=== PATIENT | female | born 2000 | race Caucasian/White ===

== ENCOUNTER 2022-02-04 13:00 | Outpatient (CLI) | payer MEDICAID, OTHER ==
[2022-02-05 13:10] LABS: BILIRUBIN,URINE NEGATIVE (NEGATIVE); GLUCOSE, URINE (UA) NEGATIVE (NEGATIVE); KETONES,URINE (UA) NEGATIVE (NEGATIVE); LEUKOCYTE ESTERASE, URINE NEGATIVE (NEGATIVE); NITRITE,URINE NEGATIVE (NEGATIVE); OCCULT BLOOD,URINE NEGATIVE (NEGATIVE); PROTEIN,URINE NEGATIVE (NEGATIVE); UROBILINOGEN,URINE 0.2 (NORMAL) E.U./dL (NORMAL)
[2022-02-05 13:15] LABS: CLARITY,URINE TURBID (CLEAR)
[2022-02-05 13:51] LABS: BACTERIA,URINE Rare /HPF (None Seen); RBC,URINE None Seen /HPF (0-5); SQUAMOUS EPITHELIAL CELL,UR FEW Squamous (<= Few); WBC,URINE 0-3 /HPF (0-5)
== END 2022-02-04 23:59 | disposition home or self-care (01) ==
LOC: LAB.WC 13:00
PROVIDERS: ATTEND Obstetrics & Gynecology
DX: Z32.01 Encounter for pregnancy test, result positive (principal)
CPT/HCPCS: 81001; 87086

== ENCOUNTER 2022-02-08 14:00 | Outpatient (CLI) | payer MEDICAID ==
[2022-02-08 14:17] LABS: BASOPHILS % (AUTO) 0.3 %; EOSINOPHILS # (AUTO) 0.1 10^3/uL (0.0-0.7); EOSINOPHILS % (AUTO) 1.5 %; HCT - HEMATOCRIT 38.3 % (37.0-47.0); HGB - HEMOGLOBIN 13.1 g/dL (12.0-16.0); LYMPHOCYTES # (AUTO) 1.2 10^3/uL (1.5-3.5); LYMPHOCYTES % (AUTO) 18.6 %; MEAN CORPUSCULAR HEMOGLOBIN 28.8 pg (27.0-31.0); MEAN CORPUSCULAR HGB CONC 34.2 g/dL (32.0-36.0); MEAN CORPUSCULAR VOLUME 84.2 fL (81.0-99.0); MEAN PLATELET VOLUME 9.9 fL (7.9-10.8); MONOCYTES # (AUTO) 0.6 10^3/uL (0.0-1.0); MONOCYTES % (AUTO) 9.5 %; NEUTROPHILS # (AUTO) 4.3 10^3/uL (1.5-6.6); NEUTROPHILS % (AUTO) 69.8 %; PLT - PLATELET COUNT 263 10^3/uL (130-450); RED BLOOD COUNT 4.55 10^6/uL (4.20-5.40); RED CELL DISTRIBUTION WIDTH 13.3 % (12.0-15.0); WHITE BLOOD COUNT 6.2 x10^3/uL (4.8-10.8)
[2022-02-09 05:10] LABS: HBsAG SCREEN Negative (Negative); HCV AB <0.1 s/co ratio (0.0-0.9); HIV SCREEN 4TH GENERATION Non Reactive (Non Reactive)
[2022-02-09 06:09] LABS: RPR Non Reactive (Non Reactive)
[2022-02-09 08:09] LABS: VARICELLA-ZOSTER AB IGG <135 index (Immune >165)
== END 2022-02-08 14:01 | disposition home or self-care (01) ==
LOC: LAB 14:00
PROVIDERS: ATTEND Obstetrics & Gynecology
DX: Z36.89 Encounter for other specified antenatal screening (principal)
CPT/HCPCS: 36415; 85025; 86592; 86762; 86787; 86803; 86850; 86900; 86901; 87340; 87389

== ENCOUNTER 2022-02-11 11:30 | Outpatient (CLI) | payer MEDICAID | END 2022-02-11 11:31 | disposition home or self-care (01) | LOC: LAB 11:30 | PROVIDERS: ATTEND Obstetrics & Gynecology | DX: O02.1 Missed abortion (principal) | CPT/HCPCS: 36415; 84702 ==

== ENCOUNTER 2022-02-25 13:11 | Outpatient (CLI) | payer MEDICAID ==
[2022-02-25 13:38] LABS: BASOPHILS % (AUTO) 0.4 %; EOSINOPHILS # (AUTO) 0.1 10^3/uL (0.0-0.7); EOSINOPHILS % (AUTO) 0.6 %; HCT - HEMATOCRIT 38.6 % (37.0-47.0); HGB - HEMOGLOBIN 13.4 g/dL (12.0-16.0); LYMPHOCYTES # (AUTO) 1.8 10^3/uL (1.5-3.5); MEAN CORPUSCULAR HEMOGLOBIN 29.8 pg (27.0-31.0); MEAN CORPUSCULAR HGB CONC 34.7 g/dL (32.0-36.0); MEAN CORPUSCULAR VOLUME 85.8 fL (81.0-99.0); MEAN PLATELET VOLUME 10.2 fL (7.9-10.8); MONOCYTES # (AUTO) 0.6 10^3/uL (0.0-1.0); MONOCYTES % (AUTO) 7.6 %; NEUTROPHILS # (AUTO) 5.6 10^3/uL (1.5-6.6); NEUTROPHILS % (AUTO) 69.2 %; PLT - PLATELET COUNT 255 10^3/uL (130-450); RED CELL DISTRIBUTION WIDTH 13.2 % (12.0-15.0)
== END 2022-02-25 13:12 | disposition home or self-care (01) ==
LOC: LAB 13:11
PROVIDERS: ATTEND Obstetrics & Gynecology
DX: Z01.812 Encounter for preprocedural laboratory examination (principal); O02.1 Missed abortion
CPT/HCPCS: 36415; 85025; 86850; 86900; 86901

== ENCOUNTER 2022-02-26 08:48 | Day surgery (SDC) | payer MEDICAID ==
[~2022-02-26 08:48] MED LIST: LIDOCAINE MPF 2%-EPI 1:200000 20 ML VIAL ONE
[2022-02-26] MEDS ORDERED: LACTATED RINGERS 1,000 ML IV ONE ×2 (08:52→11:38)
[2022-02-26] MEDS ORDERED: DOXYCYCLINE 100 MG TABLET PO ONE (09:54)
[2022-02-26] MEDS ORDERED: DEXAMETHASONE 4 MG/ML VIAL ONE (10:24)
[2022-02-26] MEDS ORDERED: PROPOFOL 200 MG/20 ML VIAL IVP ONE ×3 (10:24→11:22)
[2022-02-26] MEDS ORDERED: ONDANSETRON 4 MG/2 ML VIAL ONE (10:24)
[2022-02-26] MEDS ORDERED: MIDAZOLAM 2 MG/2 ML VIAL ONE (10:26)
[2022-02-26] MEDS ORDERED: fentaNYL 100 MCG/2 ML VIAL ONE ×2 (10:26→12:03)
[2022-02-26] MEDS ORDERED: LIDOCAINE-MPF 2% 5 ML VIAL ONE (10:28)
[2022-02-26] MEDS ORDERED: NALOXONE 0.4 MG/ML VIAL IVP PRN (10:29)
[2022-02-26] MEDS ORDERED: MORPHINE 2 MG/ML CARPUJECT IVP PRN (10:29)
[2022-02-26] MEDS ORDERED: fentaNYL 100 MCG/2 ML VIAL IVP PRN (10:29)
[2022-02-26] MEDS ORDERED: ONDANSETRON 4 MG/2 ML VIAL IVP PRN (10:29)
[2022-02-26] MEDS ORDERED: HYDROmorphone 0.5 MG/0.5 ML SYRINGE IVP PRN (10:29)
[2022-02-26] MEDS ORDERED: ATROPINE ABBOJECT 1 MG/10 ML SYRINGE IVP PRN (10:29)
[2022-02-26] MEDS ORDERED: KETAMINE 500 MG/10 ML VIAL ONE (10:37)
[2022-02-26] MEDS ORDERED: PROPOFOL 500 MG/50 ML 500 MG/50 ML VIAL ONE (10:42)
[2022-02-26] MEDS ORDERED: DOXYCYCLINE INJ 100 MG in SODIUM CHLORIDE 0.9% MINIBAG 100 ML IV STA (10:50)
[2022-02-26] MEDS ORDERED: LACTATED RINGERS 1,000 ML IV SCH (11:00)
--- NOTE | 2022-02-26 11:06 | ANESTHESIA ---
Pre-Anesthesia VS, & Labs - Diagnosis missed - Procedure dilation & curettage, induced Vital Signs: Temp Pulse Resp BP Pulse Ox O2 Flow Rate 36.2 C L 58 L 16 145/82 H 97 0 02/26/22 09:10 02/26/22 09:10 02/26/22 09:10 02/26/22 09:10 02/26/22 09:10 02/26/22 09:10 Height: 5 ft 5 in Weight (kg): 108 kg Body Mass Index: 39.6 BMI Classification: Obese - NPO >8 hours - Is Patient ?: Yes Home Medications and Allergies Home Medications: Ambulatory Orders buPROPion [Wellbutrin Xl] 150 mg PO DAILY 02/19/22 Active Medications Atropine Sulfate (Atropine Abboject 1 Mg/10 Ml Syringe) 0.5 mg IVP Q5M PRN PRN Reason: Bradycardia Stop: 02/27/22 10:29 Fentanyl (Fentanyl 100 Mcg/2 Ml Vial) 25 - 50 mcg IVP Q5M PRN PRN Reason: BREAKTHROUGH PAIN (2nd Choice) Stop: 02/27/22 10:29 Hydromorphone HCl (Hydromorphone 0.5 Mg/0.5 Ml Syringe) 0.2 - 0.6 mg IVP Q5M PRN PRN Reason: PAIN (First Choice) Stop: 02/27/22 10:29 Lactated Ringer's (Lr) 1,000 mls @ 100 mls/hr IV .Q10H ADE Stop: 02/26/22 20:59 Doxycycline Hyclate 200 mg/ (Sodium Chloride) 100 mls @ 100 mls/hr IV ONCE STA Stop: 02/26/22 11:49 Morphine Sulfate (Morphine 2 Mg/Ml Carpuject) 2 - 4 mg IVP Q5M PRN PRN Reason: PAIN (3rd Choice) Stop: 02/27/22 10:29 Naloxone HCl (Naloxone 0.4 Mg/Ml Vial) 0.1 mg IVP Q2M PRN PRN Reason: RESP RATE <8 Stop: 02/27/22 10:29 Ondansetron HCl (Ondansetron 4 Mg/2 Ml Vial) 4 mg IVP ONCE PRN PRN Reason: N/V (First Choice) Stop: 02/27/22 10:29 buPROPion [Wellbutrin Xl] 150 mg PO DAILY 02/19/22 Allergies/Adverse Reactions: Allergies Allergy/AdvReac Type Severity Reaction Status Date / Time nickel Allergy Intermediate Rash Verified 02/25/22 12:15 Anes History & Medical History - Anesthetic History Anesthesia Complications: reports: No previous complications Family history of Anesthesia Complications: Denies Family history of Malignant Hyperthermia: Denies - Medical History Cardiovascular: reports: None Pulmonary: reports: None Gastrointestinal: reports: None Urinary: reports: None Neuro: reports: None Musculoskeletal: reports: None Endocrine/Autoimmune: reports: None Skin: reports: None Smoking Status: Never smoker Psychosocial: reports: No issues indicated History of Cancer?: No - Surgical History Eyes Ears Nose Throat (EENT): reports: Tonsil/Adenoidectomy Orthopedic: reports: Arthroscopic surgery Exam General: Alert, Oriented x3, Cooperative, No acute distress Mouth Openin Fingerbreadth Neck Mobility: Normal Mallampati classification: II Thyromental Distance: 4-6 cm Cardiovascular: Normal S2 Mental/Cognitive Status: Alert/Oriented X3, Normal for patient Cognitive Status: Within normal limits Plan Anesthesia Type: General, Total IV Consent for Procedure(s) Verified and Reviewed: Yes Code Status: Attempt Resuscitation ASA classification: 2-Mild systemic disease Is this case an emergency?: No
[2022-02-26] MEDS ORDERED: LIDOCAINE MPF 2%-EPI 1:200000 20 ML VIAL SUBQ ONE ×2 (11:07)
[2022-02-26] MEDS ORDERED: HYDROcod/ACETAM 10 MG/325 MG TABLET PO PRN (11:24)
--- NOTE | 2022-02-26 11:30 | OPERATIVE REPORT ---
Operative Report - General Procedure Date: 02/26/22 Planned Procedure: Suction dilation and curettage Pre-Op Diagnosis: Missed Procedure Performed: Suction dilation and curettage Post Op Diagnosis: Complete , S/P suction D&C - Procedure Note Primary Surgeon: Suhas Fowler MD Anesthesia Provider: Radha Crouch CRNA Anesthesia Technique: General ET tube Pathology: Products of conception Estimated Blood Loss (mL): 50 Urine Output (mL): 0 (Straight cath prior to procedure) Complications: None - Other Other Information/Narrative: Patient is approximately 10 weeks 5 days by previous ultrasound, but elected to exactly manage this for several weeks. She began cramping and having some spotting/discharge prior to the procedure. She presented desiring not to c omplete the procedure expectantly. She was counseled the risk, benefits, alternatives of suction D&C versus medical and expectant management. She was counseled in clinic, and again in the PACU. She agreed to proceed with surgical evacuation. Suction D&C Prior to the procedure, patient received 200 mg of oral doxycycline, but vomited prior to surgery. Due to unknown amount of antibiotic received, she then received 100 mg of IV doxycycline. General anesthesia was obtained without difficulty. Patient was placed in dorsal high lithotomy position with great- white stirrups. The pelvis was prepped and the patient was draped in the usual fashion. Careful pelvic examination is performed to locate the position of the uterus and noted mild dilation of the cervical os. A bivalve speculum was placed in the vagina and the cervix was grasped with a single-tooth tenaculum and gently drawn towards the vaginal outlet. A paracervical block was performed. Using gentle pressure and under ultrasound guidance, the cervix was dilated to 9 mm. A 9 mm rigid suction catheter was used for suction. Under ultrasound guidance, the catheter was placed without suction into the uterine cavity. Blood and products of conception were collected in the section catheter container. After adequate removal of products, a sharp curette was used to remove additional products of conception adherent to uterine valadez. The products were collected in a sterile dish and examined. Chronic villi were seen as well as abundant products of conception and decidual tissue.. After removing products of conception and feeling circumferential uterine cri, adequate hemostasis was noted from coming from the uterus and the tenaculum was removed. Tenaculum sites were hemostatic. Upon examination the patient was hemostatic and all instruments were removed. Patient was returned to dorsal supine position and awoke from anesthesia. She was taken to the PACU in good condition.
[2022-02-26 13:14] VITALS: BP 158/75
--- NOTE | 2022-02-26 13:36 | ANESTHESIA POST OP EVALUATION ---
Anesthesia Post Eval - Post Anesthesia Eval Vitals: Last Vital Signs Temp 36.2 C L 02/26/22 13:05 Pulse 61 02/26/22 13:05 Resp 16 02/26/22 13:05 BP 158/75 H 02/26/22 13:05 Pulse Ox 98 02/26/22 13:05 O2 Flow Rate 0 02/26/22 09:10 CV Function Including HR & BP: Stable Pain Control: Satisfactory Nausea & Vomiting: Negative Mental Status: Baseline Respiratory Status: Airway Patent Hydration Status: Satisfactory Anesthesia Complications: None
== END 2022-02-26 08:49 | disposition home or self-care (01) ==
LOC: SDS 08:48
PROVIDERS: ATTEND Obstetrics & Gynecology
PROC: 10D17Z9 Manual Extraction of Products of Conception, Retained, Via Natural or Artificial Opening (ICD-10-PCS; principal; 2022-02-26 09:30)
DX: O02.1 Missed abortion (principal); Z3A.10 10 weeks gestation of pregnancy
CPT/HCPCS: 59820; A9270; J7120

== ENCOUNTER 2022-05-23 08:00 | Outpatient (CLI) | payer OTHER, MEDICAID ==
[2022-05-23 20:08] LABS: BACTERIAL VAGINOSIS DNA NEGATIVE (NEGATIVE); CANDIDA GLABRATA DNA NEGATIVE (NEGATIVE); CANDIDA GROUP DNA NEGATIVE (NEGATIVE); CANDIDA KRUSEI DNA NEGATIVE (NEGATIVE); TRICHOMONAS VAGINALIS DNA NEGATIVE (NEGATIVE)
== END 2022-05-23 23:59 | disposition home or self-care (01) ==
LOC: LAB.WC 08:00
PROVIDERS: ATTEND Obstetrics & Gynecology
DX: N89.8 Other specified noninflammatory disorders of vagina (principal)
CPT/HCPCS: 81514

== ENCOUNTER 2022-12-23 08:00 | Outpatient (CLI) | payer MEDICAID ==
[2022-12-23 17:11] LABS: BILIRUBIN,URINE NEGATIVE (NEGATIVE); GLUCOSE, URINE (UA) NEGATIVE (NEGATIVE); KETONES,URINE (UA) NEGATIVE (NEGATIVE); LEUKOCYTE ESTERASE, URINE NEGATIVE (NEGATIVE); NITRITE,URINE NEGATIVE (NEGATIVE); OCCULT BLOOD,URINE NEGATIVE (NEGATIVE); PROTEIN,URINE NEGATIVE (NEGATIVE); UROBILINOGEN,URINE 0.2 (NORMAL) E.U./dL (NORMAL)
[2022-12-23 17:39] LABS: BACTERIA,URINE None Seen /HPF (None Seen); CLARITY,URINE CLEAR (CLEAR); RBC,URINE None Seen /HPF (0-5); SQUAMOUS EPITHELIAL CELL,UR FEW Squamous (<= Few); WBC,URINE 0-3 /HPF (0-5)
== END 2022-12-23 23:59 | disposition home or self-care (01) ==
LOC: LAB.WC 08:00
PROVIDERS: ATTEND Nurse Practitioner
DX: Z34.90 Encounter for supervision of normal pregnancy, unspecified, unspecified trimester (principal)
CPT/HCPCS: 81001; 87086

== ENCOUNTER 2022-12-28 07:05 | Outpatient (CLI) | payer MEDICAID ==
--- NOTE | 2022-12-28 16:44 | Ultrasound Report ---
PROCEDURE: OB First Trimester w/TV INDICATIONS: POSITIVE TEST OUTSIDE/PRIOR DATING DATA: Last menstrual period (LMP): 11/01/2022. LMP-based estimated date of delivery (ASHLEY): 08/08/2023. First dating scan (date and location): 12/28/2022. Estimated date of delivery (ASHLEY) from first dating scan: 08/06/2023. TECHNIQUE: Real-time scanning was performed of the fetus and maternal pelvic organs, with image documentation. Endovaginal scanning was also performed to better visualize the fetus and maternal ovaries. COMPARISON: None. FINDINGS: Intrauterine gestational sac present. Embryo: Mean gestational sac diameter 3.1 cm: 8 weeks 2 days. [place]-rump length 1.9 cm: 8 weeks 3 da ys. Heart rate: 160 bpm. Other: No perigestational fluid collection. Measurement variability in dating: +/- 4 weeks by LMP, +/- 7 days by mean sac diameter (use before 6 weeks gestation if crown-rump length not able to be measured), +/- 5 days by crown-rump length (6-12 weeks gestation). Maternal organs: Ovaries demonstrate a right corpus luteal cyst measuring 1.7 cm. IMPRESSION: Single living intrauterine with a estimated gestational age of 8 weeks 3 days. Reviewed by: Jayden Stovall on 12/28/2022 4:43 PM PDT Approved by: Jayden Stovall on 12/28/2022 4:43 PM PDT Station ID: [id number]
== END 2022-12-28 07:06 | disposition home or self-care (01) ==
LOC: DI 07:05
PROVIDERS: ATTEND Nurse Practitioner
DX: Z34.91 Encounter for supervision of normal pregnancy, unspecified, first trimester (principal)

== ENCOUNTER 2023-01-16 15:41 | Outpatient (CLI) | payer MEDICAID ==
[2023-01-16 16:18] LABS: BASOPHILS % (AUTO) 0.2 %; EOSINOPHILS % (AUTO) 0.4 %; HCT - HEMATOCRIT 38.2 % (37.0-47.0); HGB - HEMOGLOBIN 12.8 g/dL (12.0-16.0); LYMPHOCYTES # (AUTO) 1.9 10^3/uL (1.5-3.5); LYMPHOCYTES % (AUTO) 23.6 %; MEAN CORPUSCULAR HEMOGLOBIN 28.3 pg (27.0-31.0); MEAN CORPUSCULAR HGB CONC 33.5 g/dL (32.0-36.0); MEAN CORPUSCULAR VOLUME 84.5 fL (81.0-99.0); MEAN PLATELET VOLUME 10.4 fL (7.9-10.8); MONOCYTES # (AUTO) 0.6 10^3/uL (0.0-1.0); MONOCYTES % (AUTO) 7.1 %; NEUTROPHILS # (AUTO) 5.6 10^3/uL (1.5-6.6); NEUTROPHILS % (AUTO) 68.5 %; PLT - PLATELET COUNT 287 10^3/uL (130-450); RED BLOOD COUNT 4.52 10^6/uL (4.20-5.40); RED CELL DISTRIBUTION WIDTH 14.6 % (12.0-15.0); WHITE BLOOD COUNT 8.2 x10^3/uL (4.8-10.8)
[2023-01-17 05:13] LABS: HBsAG SCREEN Negative (Negative); HCV AB Non Reactive (Non Reactive); HIV SCREEN 4TH GENERATION Non Reactive (Non Reactive)
[2023-01-17 06:10] LABS: RPR Non Reactive (Non Reactive)
[2023-01-17 09:09] LABS: VARICELLA-ZOSTER AB IGG <135 index (Immune >165)
[2023-01-17 17:09] LABS: ANTI-DNA (DS) AB QN 1 IU/mL (0-9); CENTROMERE B ANTIBODIES <0.2 AI (0.0-0.9); CHROMATIN ANTIBODIES <0.2 AI (0.0-0.9); JO-1 AB <0.2 AI (0.0-0.9); RIBOSOMAL P ANTIBODIES <0.2 AI (0.0-0.9); RNP ANTIBODIES <0.2 AI (0.0-0.9); SCLERODERMA-70 ANTIBODIES <0.2 AI (0.0-0.9); SJOGREN'S ANTI-SS-A <0.2 AI (0.0-0.9); SJOGREN'S ANTI-SS-B <0.2 AI (0.0-0.9); SMITH ANTIBODIES <0.2 AI (0.0-0.9); SMITH/RNP ANTIBODIES <0.2 AI (0.0-0.9)
== END 2023-01-16 15:42 | disposition home or self-care (01) ==
LOC: LAB 15:41
PROVIDERS: ATTEND Nurse Practitioner
DX: Z34.90 Encounter for supervision of normal pregnancy, unspecified, unspecified trimester (principal); Z83.2 Family history of diseases of the blood and blood-forming organs and certain disorders involving the immune mechanism
CPT/HCPCS: 36415; 83516; 84443; 85025; 86225; 86235; 86592; 86762; 86787; 86803; 86850; 86900; 86901; 87340; 87389

== ENCOUNTER 2023-01-20 08:00 | Outpatient (CLI) | payer MEDICAID ==
[2023-01-20 22:26] LABS: CHLAMYDIA TRACHOMATIS DNA NEGATIVE (NEGATIVE); NEISSERIA GONORRHOEAE DNA NEGATIVE (NEGATIVE); TRICHOMONAS VAGINALIS DNA NEGATIVE (NEGATIVE)
== END 2023-01-20 23:59 | disposition home or self-care (01) ==
LOC: LAB.WC 08:00
PROVIDERS: ATTEND Obstetrics & Gynecology
DX: Z11.3 Encounter for screening for infections with a predominantly sexual mode of transmission (principal)
CPT/HCPCS: 87491; 87591; 87661

== ENCOUNTER 2023-01-28 07:09 | Outpatient (CLI) | payer MEDICAID ==
[2023-01-28 11:13] LABS: RHEUMATOID FACTOR NEGATIVE (Negative)
[2023-01-29 18:08] LABS: ANTI-DNA (DS) AB QN 1 IU/mL (0-9); SJOGREN'S ANTI-SS-A <0.2 AI (0.0-0.9); SJOGREN'S ANTI-SS-B <0.2 AI (0.0-0.9)
[2023-01-30 19:07] LABS: ANTINUCLEAR ANTIBODIES IFA Negative (.)
== END 2023-01-28 07:10 | disposition home or self-care (01) ==
LOC: LAB 07:09
PROVIDERS: ATTEND Obstetrics & Gynecology
DX: R68.2 Dry mouth, unspecified (principal); Z82.69 Family history of other diseases of the musculoskeletal system and connective tissue
CPT/HCPCS: 36415; 85598; 85613; 85732; 86038; 86225; 86235; 86430

== ENCOUNTER 2023-03-10 14:24 | Outpatient (CLI) | payer MEDICAID ==
[2023-03-12 20:08] LABS: AFP MOM 1.44 (.); AFP VALUE 50.1 ng/mL (.); GEST. AGE ON COLLECTION DATE 18.4 weeks (.); GESTAT. AGE METHOD EDD (.); INSULIN DEP DIABETES No (.); MATERNAL AGE AT EDD 24.1 yr (.); MULTIPLE GESTATION No (.); OPEN SPINA BIFIDA RISK 1 IN 3220 (.); RACE Caucasian (.); RESULTS Report (.); TEST RESULTS *Screen Negative* (.); WEIGHT 243 lbs (.)
== END 2023-03-10 14:25 | disposition home or self-care (01) ==
LOC: LAB 14:24
PROVIDERS: ATTEND Obstetrics & Gynecology
DX: O99.211 Obesity complicating pregnancy, first trimester (principal)
CPT/HCPCS: 36415; 82105

== ENCOUNTER 2023-03-24 15:06 | Outpatient (CLI) | payer MEDICAID ==
--- NOTE | 2023-03-24 16:40 | Ultrasound Report ---
PROCEDURE: OB 14+ Weeks INDICATIONS: OBESITY COMPLICATING OUTSIDE/PRIOR DATING DATA: Last menstrual period (LMP): 11/01/2022. LMP-based estimated date of delivery (ASHLEY): 08/08/2023. The below data below was generated using the clinical ASHLEY of 08/08/2023 TECHNIQUE: Real-time scanning was performed of the fetus, with image documentation and biometric measurements. Endovaginal scanning: Not performed. COMPARISON: 12/28/2022 FINDINGS: General: A single living intrauterine gestation is present. Presentation: Breech Placenta: Placental position is posterior, without previa. Amniotic fluid index: 11.6 cm, within normal limits for gestational age. heart rate: 164 beats per minute. Maternal cervical canal: 5.2 cm long; normal length is 2.5 cm or more. biometrics: Biparietal diameter: 4.7 cm, 20 weeks 2 days, 43rd percentile Head circumference: 17.9 cm, 20 weeks 2 days, 37th percentile Abdominal circumference: 5.3 cm, 20 weeks 3 days, 45th percentile Femur length: 3.3 cm, 20 weeks 2 days, 36th percentile Estimated gestational age from initial scan: 20 weeks 3 days Composite gestational age from present scan: 20 weeks 2 days Estimated weight and percentile: 350 g, 42nd percentile Measurement variability for biometric dating: +/- 10 days from 12-20 weeks gestation, +/- 2 weeks fro m 20-30 weeks gestation, +/- 3 weeks for 30 weeks gestation or later. Anatomic survey: Neuro: Ventricles are non-dilated at less than 10 mm. Cisterna magna is normal at 3-11 mm. Cerebel lum is normal in size and morphology. Nuchal skin fold: Normal at less than 6 mm between 14-20 weeks gestational age. Face: Nose and lips, facial profile are normal. Spine: Not well visualized. Heart: 4-chambered heart is present. Outflow tracts not evaluated. Diaphragm: Diaphragm is intact. Stomach: Left-sided stomach is present. Kidneys: No hydronephrosis. Normal is less than 5 mm in 2nd trimester, less than 7 mm in 3rd trimester. Cord: 3-vessel cord has orthotopic insertion. Bladder: Normal in size. Extremities: Limbs not evaluated. IMPRESSION: Single living intrauterine at 20 weeks 3 days, ASHLEY of 08/08/2023. The spine is not well-visualized. Outflow tracts and extremities not evaluated. Otherwise, norm al anatomy survey. Short-term follow-up is recommended. Estimated weight of 350 g, 42nd percentile. Reviewed by: Cruz Reece on 03/24/2023 4:38 PM PDT Approved by: Cruz Reece on 03/24/2023 4:38 PM PDT Station ID: [id number]
== END 2023-03-24 15:07 | disposition home or self-care (01) ==
LOC: DI 15:06
PROVIDERS: ATTEND Obstetrics & Gynecology
DX: O99.212 Obesity complicating pregnancy, second trimester (principal); Z3A.20 20 weeks gestation of pregnancy

== ENCOUNTER 2023-04-10 07:22 | Outpatient (CLI) | payer MEDICAID ==
--- NOTE | 2023-04-10 20:54 | Ultrasound Report ---
PROCEDURE: OB F/U or Repeat INDICATIONS: SUPERVISION OF OUTSIDE/PRIOR DATING DATA: Last menstrual period (LMP): 11/01/2022. LMP-based estimated date of delivery (ASHLEY): 08/08/2023. First dating scan (date and location): 12/28/2022. Estimated date of delivery (ASHLEY) from first dating scan: 08/06/2023. The below data below was generated using the working ASHLEY of 08/08/2023 TECHNIQUE: Ultrasound of the gravid uterus was performed and recorded. COMPARISON: None. FINDINGS: General: A single live intrauterine gestation is present. Presentation: Breech Placenta: Placental position is posterior without previa. Amniotic fluid index: 14.0 cm, 42 percentile for gestational age. heart rate: 148 beats per minute. Maternal cervical canal: 5.8 cm long; normal length is 2.5 cm or more. Estimated gestational age by working dates: 22 week 6 day Other: nose/lips, spine, ventricular outflow tracts as well as all 4 extremities are within nor mal limits. IMPRESSION: Single live intrauterine consistent with 22 week 6 day gestation by current ultrasound Normal anatomic survey Reviewed by: Aric Moore MD on 04/10/2023 7:53 PM AKST Approved by: Aric Moore MD on 04/10/2023 7:53 PM AKST Station ID: [id number]
== END 2023-04-10 07:23 | disposition home or self-care (01) ==
LOC: DI 07:22
PROVIDERS: ATTEND Obstetrics & Gynecology
DX: O09.92 Supervision of high risk pregnancy, unspecified, second trimester (principal); Z3A.22 22 weeks gestation of pregnancy

== ENCOUNTER 2023-04-28 10:37 | Outpatient (CLI) | payer MEDICAID | END 2023-04-28 10:38 | disposition home or self-care (01) | LOC: LAB 10:37 | PROVIDERS: ATTEND Obstetrics & Gynecology | DX: O09.92 Supervision of high risk pregnancy, unspecified, second trimester (principal); O99.212 Obesity complicating pregnancy, second trimester; E66.9 Obesity, unspecified | CPT/HCPCS: 36415; 82950 ==

== ENCOUNTER 2023-05-14 10:24 | Outpatient (CLI) | payer MEDICAID ==
[2023-05-14 10:44] LABS: HCT - HEMATOCRIT 34.5 % (37.0-47.0); HGB - HEMOGLOBIN 11.6 g/dL (12.0-16.0); MEAN CORPUSCULAR HEMOGLOBIN 29.9 pg (27.0-31.0); MEAN CORPUSCULAR HGB CONC 33.6 g/dL (32.0-36.0); MEAN CORPUSCULAR VOLUME 88.9 fL (81.0-99.0); MEAN PLATELET VOLUME 9.7 fL (7.9-10.8); RED BLOOD COUNT 3.88 10^6/uL (4.20-5.40); RED CELL DISTRIBUTION WIDTH 13.5 % (12.0-15.0); WHITE BLOOD COUNT 9.5 x10^3/uL (4.8-10.8)
[2023-05-14 10:58] LABS: CREATININE,URINE 85.6 mg/dL; PROTEIN/CREATININE RATIO,URINE 0.1 (<=0.2)
[2023-05-14 10:58] LABS: ALBUMIN 3.6 g/dL (3.2-5.5); ALBUMIN/GLOBULIN RATIO 1.2 (1.0-2.2); BILIRUBIN,TOTAL 0.3 mg/dL (0.2-1.0); CALCIUM 9.3 mg/dL (8.5-10.3); CREATININE 0.6 mg/dL (0.6-1.3); POTASSIUM 3.8 mmol/L (3.5-4.5); TOTAL PROTEIN 6.7 g/dL (6.4-8.9)
== END 2023-05-14 10:25 | disposition home or self-care (01) ==
LOC: LAB 10:24
PROVIDERS: ATTEND Obstetrics & Gynecology
DX: O13.2 Gestational [pregnancy-induced] hypertension without significant proteinuria, second trimester (principal)
CPT/HCPCS: 36415; 80053; 82570; 84156; 85027

== ENCOUNTER 2023-06-16 08:25 | Outpatient (CLI) | payer MEDICAID ==
--- NOTE | 2023-06-16 11:20 | Ultrasound Report ---
PROCEDURE: OB Follow up INDICATIONS: OBESITY OUTSIDE/PRIOR DATING DATA: Last menstrual period (LMP): 11/01/2022. LMP-based estimated date of delivery (ASHLEY): 08/08/2023. First dating scan (date and location): 12/28/2022. Estimated date of delivery (ASHLEY) from first dating scan: 08/06/2023. The below data below was generated using the clinical ASHLEY of 08/08/2023 TECHNIQUE: Real-time scanning was performed of the fetus, with image documentation and biometric measurements. Endovaginal scanning: Not performed. COMPARISON: None. FINDINGS: General: A single living intrauterine gestation is present. Presentation: Vertex Placenta: Placental position is posterior, without previa. Amniotic fluid index: 14.6 cm, within normal limits for gestational age. heart rate: 144 beats per minute. Maternal cervical canal: 4.9 cm long; normal length is 2.5 cm or more. biometrics: Biparietal diameter: 8.2 cm, 32 weeks 6 days, 55th percentile Head circumference: 30.3 cm, 33 weeks 4 days, 44th percentile Abdominal circumference: 29.3 cm, 33 weeks 2 days, 75th percentile Femur length: 6.2 cm, 32 weeks 2 days, 34th percentile Estimated gestational age from initial scan: 32 weeks 3 days Composite gestational age from present scan: 33 weeks 0 days Estimated weight and percentile: 2100 g, 59th percentile Measurement variability in biometric dating: +/- 10 days from 12-20 weeks gestation, +/- 2 weeks from 20-30 weeks gestation, +/- 3 weeks at 30 weeks gestation or more. Other: Not applicable. IMPRESSION: Single living intrauterine at 32 weeks 3 days, ASHLEY of 08/08/2023. Estimated weight of 2100 g, 59th percentile. Reviewed by: Cruz Reece MD on 06/16/2023 11:19 AM PST Approved by: Cruz Reece MD on 06/16/2023 11:19 AM PST Station ID: [id number]
== END 2023-06-16 08:26 | disposition home or self-care (01) ==
LOC: DI 08:25
PROVIDERS: ATTEND Obstetrics & Gynecology
DX: O09.93 Supervision of high risk pregnancy, unspecified, third trimester (principal); O99.213 Obesity complicating pregnancy, third trimester; Z3A.32 32 weeks gestation of pregnancy

== ENCOUNTER 2023-06-17 16:31 | Observation (INO) | payer MEDICAID ==
[2023-06-17 17:14] LABS: BASOPHILS % (AUTO) 0.2 %; EOSINOPHILS # (AUTO) 0.1 10^3/uL (0.0-0.7); EOSINOPHILS % (AUTO) 0.7 %; HCT - HEMATOCRIT 34.2 % (37.0-47.0); HGB - HEMOGLOBIN 11.1 g/dL (12.0-16.0); LYMPHOCYTES # (AUTO) 1.1 10^3/uL (1.5-3.5); LYMPHOCYTES % (AUTO) 12.6 %; MEAN CORPUSCULAR HEMOGLOBIN 29.4 pg (27.0-31.0); MEAN CORPUSCULAR HGB CONC 32.5 g/dL (32.0-36.0); MEAN CORPUSCULAR VOLUME 90.7 fL (81.0-99.0); MEAN PLATELET VOLUME 10.4 fL (7.9-10.8); MONOCYTES # (AUTO) 0.6 10^3/uL (0.0-1.0); NEUTROPHILS # (AUTO) 6.8 10^3/uL (1.5-6.6); PLT - PLATELET COUNT 230 10^3/uL (130-450); RED BLOOD COUNT 3.77 10^6/uL (4.20-5.40); RED CELL DISTRIBUTION WIDTH 13.2 % (12.0-15.0); WHITE BLOOD COUNT 8.6 x10^3/uL (4.8-10.8)
[2023-06-17] MEDS ORDERED: ACETAMINOPHEN 500 MG TABLET PO PRN (17:23)
[2023-06-17 17:28] LABS: ALBUMIN 3.7 g/dL (3.2-5.5); ALBUMIN/GLOBULIN RATIO 1.1 (1.0-2.2); BILIRUBIN,TOTAL 0.5 mg/dL (0.2-1.0); CALCIUM 9.2 mg/dL (8.5-10.3); CREATININE 0.6 mg/dL (0.6-1.3); POTASSIUM 3.9 mmol/L (3.5-4.5)
[2023-06-17 17:45] LABS: CREATININE,URINE 41.9 mg/dL; PROTEIN/CREATININE RATIO,URINE 0.1 (<=0.2)
[2023-06-17] MEDS ORDERED: SODIUM CHLORIDE FLUSH 0.9% 10 ML SYRINGE IVP PRN (18:24)
--- NOTE | 2023-06-17 20:54 | PROVIDER PROGRESS NOTE ---
- HPI Chief Complaint: Hypertension/PIH Current : Current EDU 08/08/23 Gestation 32 Weeks and 4 Days 2 Para 0 Vital Signs Temperature 98.4 F 06/17/23 16:40 Heart Rate 88 06/17/23 16:40 Respiratory Rate 16 06/17/23 16:40 Blood Pressure 141/77 H 06/17/23 16:40 Temperature 98.4 F 06/17/23 16:40 Heart Rate 82 06/17/23 17:45 Respiratory Rate 16 06/17/23 17:45 Blood Pressure 128/67 06/17/23 17:45 O2 Saturation 97 06/17/23 17:09 If not protocol: Oxygen Flow, liters/minute - Exam VSS NAD Conjunctiva pink, pale sclera +S1, S2, CTAB, no increased work of breathing Abd soft, NT, ND, visibly gravid at NST: 145mod candice + A cells no D cells, reactive [place]: acontractile Cx: def Ext: neg CCE - Procedures OB Procedure Performed: NST Diagnosis/Indication for NST: Gestational Hypertension NST Procedure: NST Procedure Start Date 06/17/23 Start Time 16:41 Stop Time 18:28 Vibroacoustic Stimulation Used No Patient States Movement Yes Service Date of procedure: 06/17/23 Procedure Details: 145 mod candice + A cells no D cells reactive - Plan Plan: 32w at 32w4d with known gHTN (likely chronic), on labetalol 100mg BID presents today with severe ANTONIO and blurry vision and BP 140+ on initial presentation took tylenol, headache is "a little better" no severe range BP PIH labs wnl no ability to check BP at home will observe and collect 24h urine. consider Rx for BP cuff in the morning so she can have it if she does not have PIH. if progresses to severe PIH will tx to facility with NICU. Discussed above with patient and partner all questions answered
[2023-06-17] MEDS: LABETALOL 100 MG TABLET PO SCH (22:31)
[2023-06-18] MEDS: LABETALOL 100 MG TABLET PO SCH (09:10)
--- NOTE | 2023-06-18 15:38 | DISCHARGE SUMMARY ---
Discharge Summary Admit Date: 06/17/23 Discharge Date: 06/18/23 Discharging Provider: lurdes Primary Care Provider: genesis Code Status: Attempt Resuscitation Condition at Discharge: Good Discharge Disposition: Home, Self Care - DIAGNOSES Admission Diagnoses: pt observed for r/o PIH had ANTONIO, blurry vision and elevated BP with no reliable way to check her BP at home. has been overnight, doing 24h urine and getting serial BP has had stable BP throughout the day and would prefer to finish 24h urine at home will send BP cuff to pharmacy and have bring it here so we can ensure accurate read. precautions reviewed in detail. Discharge Diagnoses with Status of Each Condition: IUP @ 32w chronic HTN on labetalol 100mg BID asymptomatic right now will f/u 24h urine and BP log at home. - HPI History of Present Illness: pt doing well no further ANTONIO no changes in vision no RUQ pain baby is moving well no VB, LOF, ctx ready to go home has safe home to go home to precautions reviewed all questions answered. - HOSPITAL COURSE Hospital Course: observed x 20h for serial BP 24h urine collection. NST Q8h - ALLERGIES Allergies/Adverse Reactions: Allergies Allergy/AdvReac Type Severity Reaction Status Date / Time nickel Allergy Intermediate Rash Verified 02/25/22 12:15 - MEDICATIONS Home Medications: Ambulatory Orders Medication Instructions Recorded Confirmed buPROPion [Wellbutrin Xl] 150 mg PO DAILY 02/19/22 02/25/22 - PHYSICAL EXAM AT DISCHARGE General Appearance: positive: No acute distress Eyes Bilateral: positive: Normal inspection ENT: positive: ENT inspection nml Neck: positive: Nml inspection Respiratory: positive: No respiratory distress Skin: positive: Color nml, No rash, Warm, Dry Extremities: positive: Non-tender, Full ROM, Nml appearance Neurologic/Psychiatric: positive: Oriented x3 - LABS Result Diagrams: 06/17/23 17:00 06/17/23 17:00 - QUALITY (Female Hip Fx Only) Was patient sent home on osteoporosis medication?: No - FOLLOW UP Follow Up: 1 w for BP check and PRN for BP checks - continue home monitoring - TIME SPENT Time Spent in Discharge (Minutes): 20
--- NOTE | 2023-06-18 15:44 | Discharge Plan ---
Discharge Plan Problem Reviewed?: Yes Disposition: Home, Self Care Condition: Good Diet: Regular Activity Restrictions: No Restrictions Shower Restrictions: No No Smoking: If you smoke, Please STOP! Call for help.
[2023-06-18 15:48] VITALS: O2SAT 98
[2023-06-18 17:23] VITALS: BP 108/72
== END 2023-06-18 17:15 | disposition home or self-care (01) ==
LOC: WFO 16:31 → FBP 16:34 → WFO 20:59 → FBP 21:00
PROVIDERS: ADMIT Obstetrics & Gynecology; ATTEND Obstetrics & Gynecology
DX: O13.3 Gestational [pregnancy-induced] hypertension without significant proteinuria, third trimester (principal); Z3A.32 32 weeks gestation of pregnancy
CPT/HCPCS: 36415; 59025; 80053; 82570; 84156; 85025; 99215; A9270; G0378; 84166

== ENCOUNTER 2023-06-18 08:00 | Outpatient (CLI) | payer MEDICAID ==
[2023-06-18 21:24] LABS: CREATININE,URINE 46.7 mg/dL
== END 2023-06-18 23:59 | disposition home or self-care (01) ==
LOC: LAB.WC 08:00
PROVIDERS: ATTEND Obstetrics & Gynecology
DX: O13.3 Gestational [pregnancy-induced] hypertension without significant proteinuria, third trimester (principal)
CPT/HCPCS: 82570; 84156

== ENCOUNTER 2023-06-23 09:56 | Outpatient (CLI) | payer MEDICAID ==
[2023-06-23 10:24] VITALS: BP 113/65
--- NOTE | 2023-06-23 10:35 | PROCEDURE REPORT ---
- HPI Diagnosis/Indication for NST: Gestational Hypertension Vital Signs Temperature 98.1 F 06/23/23 10:02 Heart Rate 92 06/23/23 10:02 Respiratory Rate 18 06/23/23 10:02 Blood Pressure 113/65 06/23/23 10:02 Temperature 98.1 F 06/23/23 10:02 Heart Rate 92 06/23/23 10:02 Respiratory Rate 18 06/23/23 10:02 Blood Pressure 113/65 06/23/23 10:02 O2 Saturation If not protocol: Oxygen Flow, liters/minute - Results and Plan Plan: Patient is a 23-year-old -0-1-0 at 33 weeks 3 days gestation here for NST. NST Performed 06/23/2023 NST Read 06/23/2023 FHT: 140 bpm baseline, moderate variability, accelerations present, no decelerations. Reactive NST [place]: Quiescent Diagnosis 33 weeks gestation Gestational hypertension Continue with scheduled NST.
== END 2023-06-23 10:40 | disposition home or self-care (01) ==
LOC: WFO 09:56 → FBP 09:58 → WFO 10:40
PROVIDERS: ATTEND Obstetrics & Gynecology
DX: O13.3 Gestational [pregnancy-induced] hypertension without significant proteinuria, third trimester (principal); Z3A.33 33 weeks gestation of pregnancy
CPT/HCPCS: 59025

== ENCOUNTER 2023-06-26 15:11 | Outpatient (CLI) | payer MEDICAID ==
[2023-06-26 15:30] VITALS: BP 131/66
--- NOTE | 2023-06-26 18:14 | PROCEDURE REPORT ---
- HPI Diagnosis/Indication for NST: Gestational Hypertension Current EDU 08/08/23 Gestation 33 Weeks and 6 Days 2 Para 0 Vital Signs Temperature 98.8 F 06/26/23 15:23 Heart Rate 59 L 06/26/23 15:23 Respiratory Rate 16 06/26/23 15:23 Blood Pressure 131/66 H 06/26/23 15:23 Temperature 98.8 F 06/26/23 15:23 Heart Rate 59 L 06/26/23 15:23 Respiratory Rate 16 06/26/23 15:23 Blood Pressure 131/66 H 06/26/23 15:23 O2 Saturation If not protocol: Oxygen Flow, liters/minute - NST Procedure NST Procedure Start Date 06/26/23 Start Time 15:17 Stop Time 15:51 Vibroacoustic Stimulation Used No Patient States Movement Yes - Results and Plan Plan: Patient is a 23-year-old -0-1-0 at 33 weeks 6 days gestation here for NST. NST Performed 06/26/2023 NST Read 06/26/2023 FHT: 130 bpm baseline, moderate variability, accelerations present, no decelerations. Reactive NST [place]: Quiescent Diagnosis 33 weeks gestation Gestational hypertension Continue with scheduled NST.
== END 2023-06-26 15:55 | disposition home or self-care (01) ==
LOC: WFO 15:11 → FBP 15:12 → WFO 15:55
PROVIDERS: ATTEND Obstetrics & Gynecology
DX: O13.3 Gestational [pregnancy-induced] hypertension without significant proteinuria, third trimester (principal); Z3A.33 33 weeks gestation of pregnancy
CPT/HCPCS: 59025

== ENCOUNTER 2023-06-26 16:03 | Outpatient (CLI) | payer MEDICAID ==
--- NOTE | 2023-06-27 11:27 | Ultrasound Report ---
PROCEDURE: OB Biophysical Profile INDICATIONS: GESTATIONAL HYPERTENSION OUTSIDE/PRIOR DATING DATA: Last menstrual period (LMP): 11/01/2022. LMP-based estimated date of delivery (ASHLEY): 08/08/2023. First dating scan (date and location): 12/28/2022. Estimated date of delivery (ASHLEY) from first dating scan: 08/06/2023. The below data below was generated using the clinical ASHLEY of 08/08/2023 TECHNIQUE: Real-time scanning was performed of the fetus, with image documentation and biometric sergey surements. Biophysical profile was also obtained. Endovaginal scanning: Not performed. COMPARISON: OB ultrasound 06/16/2023. FINDINGS: General: A single living intrauterine gestation is present. Presentation: Vertex Placenta: Placental position is posterior, without previa. Amniotic fluid index: 16.1 cm, normal for gestational age. Largest pocket 5.6 cm. heart rate: 131 beats per minute. Maternal cervical canal: Closed. Estimated gestational age from initial scan: 33 weeks 6 days Biophysical profile: Tone: 2 points. Movement: 0 points. Respiration: 2 points. Largest pocket of fluid: 2 points. Other: Nuchal cord noted. IMPRESSION: 1. [place] living intrauterine at 33 weeks 6 days based on prior dating. 2. Normal placenta and amniotic fluid. 3. Biophysical profile score 6 out of 8. movement was not documented during the scan. Breathing and tone are normal. 4. Nuchal umbilical cord noted. Reviewed by: Santiago Becker MD on 06/27/2023 11:21 AM PST Approved by: Santiago Becker MD on 06/27/2023 11:21 AM PST Station ID: [id number]
== END 2023-06-26 16:04 | disposition home or self-care (01) ==
LOC: DI 16:03
PROVIDERS: ATTEND Obstetrics & Gynecology
DX: O13.3 Gestational [pregnancy-induced] hypertension without significant proteinuria, third trimester (principal); Z3A.33 33 weeks gestation of pregnancy

== ENCOUNTER 2023-06-30 07:58 | Outpatient (CLI) | payer MEDICAID ==
[2023-06-30 08:16] VITALS: BP 122/74
--- NOTE | 2023-06-30 18:10 | PROCEDURE REPORT ---
- HPI Diagnosis/Indication for NST: Pre- Hypertension Current EDU 08/08/23 Gestation 34 Weeks and 3 Days 2 Para 0 Vital Signs Temperature 98.2 F 06/30/23 08:03 Heart Rate 90 06/30/23 08:03 Respiratory Rate 18 06/30/23 08:03 Blood Pressure 122/74 06/30/23 08:03 Temperature 98.2 F 06/30/23 08:03 Heart Rate 90 06/30/23 08:03 Respiratory Rate 18 06/30/23 08:03 Blood Pressure 122/74 06/30/23 08:03 O2 Saturation If not protocol: Oxygen Flow, liters/minute - NST Procedure NST Procedure Start Date 06/30/23 Start Time 08:07 Stop Time 08:31 Vibroacoustic Stimulation Used No Patient States Movement Yes - Results and Plan Plan: Patient is a 23-year-old -0-1-0 at 34 weeks 3 days gestation here for NST. NST Performed 06/30/2023 NST Read 06/30/2023 FHT: 140 bpm baseline, moderate variability, accelerations present, no decelerations. Reactive NST [place]: Quiescent Diagnosis 34 weeks gestation Chronic hypertension Continue with scheduled NST.
== END 2023-06-30 08:35 | disposition home or self-care (01) ==
LOC: WFO 07:58 → FBP 08:01 → WFO 08:35
PROVIDERS: ATTEND Obstetrics & Gynecology
DX: O10.913 Unspecified pre-existing hypertension complicating pregnancy, third trimester (principal); Z3A.34 34 weeks gestation of pregnancy
CPT/HCPCS: 59025

== ENCOUNTER 2023-07-03 15:06 | Outpatient (CLI) | payer MEDICAID ==
[2023-07-03 15:22] VITALS: BP 133/85
--- NOTE | 2023-07-03 15:41 | PROCEDURE REPORT ---
- HPI Diagnosis/Indication for NST: Gestational Hypertension Vital Signs Temperature 98.2 F 07/03/23 15:14 Temperature 98.2 F 07/03/23 15:19 Heart Rate 81 07/03/23 15:19 Respiratory Rate 15 07/03/23 15:19 Blood Pressure 133/85 H 07/03/23 15:19 O2 Saturation If not protocol: Oxygen Flow, liters/minute gestational htn 34 w 6 d - NST Procedure NST Procedure Start Time 08:07 Stop Time 08:31 NST reviewed in real time. moderate variablity. + acels. no decels. - Results and Plan Findings/Impression: reactive NST Plan: care as scheduled.
== END 2023-07-03 15:37 | disposition home or self-care (01) ==
LOC: WFO 15:06 → FBP 15:08 → WFO 15:37
PROVIDERS: ATTEND Obstetrics & Gynecology
DX: O13.3 Gestational [pregnancy-induced] hypertension without significant proteinuria, third trimester (principal); Z3A.34 34 weeks gestation of pregnancy
CPT/HCPCS: 59025

== ENCOUNTER 2023-07-03 16:05 | Outpatient (CLI) | payer MEDICAID ==
--- NOTE | 2023-07-03 20:37 | Ultrasound Report ---
PROCEDURE: OB Biophysical Profile INDICATIONS: GESTATIONAL HYPERTENSION OUTSIDE/PRIOR DATING DATA: Last menstrual period (LMP): 11/21/2022. LMP-based estimated date of delivery (ASHLEY): 08/08/2023. First dating scan (date and location): 12/28/2022. Estimated date of delivery (ASHLEY) from first dating scan: 08/06/2023. The below data below was generated using the clinical ASHLEY of 08/08/2023 TECHNIQUE: Real-time scanning was performed of the fetus, with image documentation. Biophysical pro file was also obtained. Endovaginal scanning: Not performed. COMPARISON: OB ultrasound 06/26/2023 FINDINGS: General: A single living intrauterine gestation is present. Presentation: Vertex Placenta: Placental position is posterior, without previa. Amniotic fluid index: 18.0 cm, normal for gestational age. heart rate: 153 beats per minute. Maternal cervical canal: 4.8 cm long; normal length is 2.5 cm or more. Clinically estimated gestational age: 34 weeks 6 days. Biophysical profile: Tone: 2 points. Movement: 2 points. Respiration: 2 points. Largest pocket of fluid: 2 points. IMPRESSION: 1.Single live intrauterine at 34 weeks 6 days gestation. 2.Biophysical profile score is 8 of 8. Reviewed by: Nick Hernandez MD on 07/03/2023 8:36 PM PST Approved by: Nick Hernandez MD on 07/03/2023 8:36 PM PST Station ID: [id number]
== END 2023-07-03 16:06 | disposition home or self-care (01) ==
LOC: DI 16:05
PROVIDERS: ATTEND Obstetrics & Gynecology
DX: O13.3 Gestational [pregnancy-induced] hypertension without significant proteinuria, third trimester (principal); Z3A.34 34 weeks gestation of pregnancy

== ENCOUNTER 2023-07-07 09:20 | Outpatient (CLI) | payer MEDICAID ==
[2023-07-07 09:42] VITALS: BP 124/65
--- NOTE | 2023-07-07 09:57 | PROCEDURE REPORT ---
- HPI Current EDU 08/08/23 Gestation 35 Weeks and 3 Days 2 Para 0 Vital Signs Temperature 98.2 F 07/07/23 09:39 Heart Rate 94 07/07/23 09:39 Respiratory Rate 16 07/07/23 09:39 Blood Pressure 124/65 07/07/23 09:39 - NST Procedure NST Procedure Start Time 15:12 Stop Time 15:36 - Results and Plan Plan: Patient is a 23-year-old -0-1-0 at 35 weeks 3 days gestation here for NST. NST Performed 07/07/2023 NST Read 07/07/2023 FHT: 135 bpm baseline, moderate variability, accelerations present, no decelerations. Reactive NST [place]: Yes Diagnosis 35 weeks gestation Chronic hypertension Continue with scheduled NST.
== END 2023-07-07 10:45 | disposition home or self-care (01) ==
LOC: WFO 09:20 → FBP 09:32 → WFO 10:45
PROVIDERS: ATTEND Obstetrics & Gynecology
DX: O13.3 Gestational [pregnancy-induced] hypertension without significant proteinuria, third trimester (principal); Z3A.35 35 weeks gestation of pregnancy
CPT/HCPCS: 59025

== ENCOUNTER 2023-07-10 15:11 | Outpatient (CLI) | payer MEDICAID ==
[2023-07-10 15:35] VITALS: BP 133/70
--- NOTE | 2023-07-10 17:15 | PROCEDURE REPORT ---
- HPI Diagnosis/Indication for NST: Pre- Hypertension Current EDU 08/08/23 Gestation 35 Weeks and 6 Days 2 Para 0 Vital Signs Temperature 98.2 F 07/10/23 15:22 Heart Rate 78 07/10/23 15:22 Respiratory Rate 17 07/10/23 15:22 Blood Pressure 133/70 H 07/10/23 15:22 Temperature 98.2 F 07/10/23 15:22 Heart Rate 78 07/10/23 15:22 Respiratory Rate 17 07/10/23 15:22 Blood Pressure 133/70 H 07/10/23 15:22 O2 Saturation If not protocol: Oxygen Flow, liters/minute - NST Procedure NST Procedure Start Date 07/10/23 Start Time 15:18 Stop Time 15:53 Vibroacoustic Stimulation Used No Patient States Movement Yes - Results and Plan Plan: Patient is a 23-year-old -0-1-0 at 35 weeks 6 days gestation here for NST. NST Performed 07/10/2023 NST Read 07/10/2023 FHT: 120 bpm baseline, moderate variability, accelerations present, no decelerations. Reactive NST [place]: Intermittent, mild Diagnosis 35 weeks gestation Chronic hypertension Continue with scheduled NST.
== END 2023-07-10 15:58 | disposition home or self-care (01) ==
LOC: WFO 15:11 → FBP 15:13 → WFO 15:58
PROVIDERS: ATTEND Obstetrics & Gynecology
DX: O10.913 Unspecified pre-existing hypertension complicating pregnancy, third trimester (principal); Z3A.35 35 weeks gestation of pregnancy
CPT/HCPCS: 59025

== ENCOUNTER 2023-07-10 16:01 | Outpatient (CLI) | payer MEDICAID ==
--- NOTE | 2023-07-11 15:47 | Ultrasound Report ---
PROCEDURE: OB Biophysical Profile INDICATIONS: GESTATIONAL HYPERTENSION OUTSIDE/PRIOR DATING DATA: Last menstrual period (LMP): 11/01/2022. LMP-based estimated date of delivery (ASHLEY): 08/08/2023. First dating scan (date and location): 12/28/2022. Estimated date of delivery (ASHLEY) from first dating scan: 08/06/2023. TECHNIQUE: Real-time scanning was performed of the fetus, with image documentation and biometric sergey surements. Biophysical profile was also obtained. COMPARISON: None. FINDINGS: General: A single living intrauterine gestation is present. Presentation: Vertex Placenta: Placental position is posterior, without previa. Amniotic fluid index: 16.3 cm, normal for gestational age. heart rate: 140 beats per minute. Maternal cervical canal: Not imaged Biophysical profile: Tone: 2 points. Movement: 2 points. Respiration: 2 points. Largest pocket of fluid: 2 points. IMPRESSION: 12/31 biophysical profile. Reviewed by: Cristin Mayberry MD on 07/11/2023 3:46 PM PST Approved by: Cristin Mayberry MD on 07/11/2023 3:46 PM PST Station ID: [id number]
== END 2023-07-10 16:02 | disposition home or self-care (01) ==
LOC: DI 16:01
PROVIDERS: ATTEND Obstetrics & Gynecology
DX: O13.3 Gestational [pregnancy-induced] hypertension without significant proteinuria, third trimester (principal); Z3A.00 Weeks of gestation of pregnancy not specified

== ENCOUNTER 2023-07-14 07:53 | Outpatient (CLI) | payer MEDICAID ==
[2023-07-14 08:17] VITALS: BP 137/78
--- NOTE | 2023-07-14 08:53 | PROCEDURE REPORT ---
- HPI Diagnosis/Indication for NST: Pre- Hypertension Current EDU 08/03/23 Gestation 37 Weeks and 1 Days 2 Para 0 Vital Signs Temperature 98.2 F 07/14/23 08:03 Heart Rate 87 07/14/23 08:03 Respiratory Rate 18 07/14/23 08:03 Blood Pressure 137/78 H 07/14/23 08:03 Temperature 98.2 F 07/14/23 09:50 Heart Rate 87 07/14/23 09:50 Respiratory Rate 18 07/14/23 09:50 Blood Pressure 137/78 H 07/14/23 09:50 O2 Saturation If not protocol: Oxygen Flow, liters/minute - NST Procedure NST Procedure Start Time 10:10 Stop Time 10:40 - Results and Plan Plan: Patient is a 23-year-old -0-1-0 at 37 weeks 1 day gestation here for NST. NST Performed 07/14/2023 NST Read 07/14/2023 FHT: 135 bpm baseline, moderate variability, accelerations present, no decelerations. Reactive NST [place]: Quiescent Diagnosis 37 weeks gestation Chronic hypertension Continue with scheduled NST.
== END 2023-07-14 10:00 | disposition home or self-care (01) ==
LOC: WFO 07:53 → FBP 07:56 → WFO 10:00
PROVIDERS: ATTEND Obstetrics & Gynecology
DX: O10.913 Unspecified pre-existing hypertension complicating pregnancy, third trimester (principal); Z3A.37 37 weeks gestation of pregnancy
CPT/HCPCS: 59025; 87797

== ENCOUNTER 2023-07-14 08:00 | Outpatient (CLI) | payer MEDICAID | END 2023-07-14 23:59 | disposition home or self-care (01) | LOC: LAB.WC 08:00 | PROVIDERS: ATTEND Obstetrics & Gynecology | DX: Z36.85 Encounter for antenatal screening for Streptococcus B (principal) | CPT/HCPCS: 87797 ==

== ENCOUNTER 2023-07-17 16:00 | Outpatient (CLI) | payer MEDICAID ==
--- NOTE | 2023-07-18 17:39 | Ultrasound Report ---
PROCEDURE: OB Biophysical Profile INDICATIONS: GESTATIONAL HYPERTENSION OUTSIDE/PRIOR DATING DATA: Last menstrual period (LMP): 11/01/2022. LMP-based estimated date of delivery (ASHLEY): 01/08/2024. First dating scan (date and location): . Estimated date of delivery (ASHLEY) from first dating scan: 08/06/2023. TECHNIQUE: Real-time scanning was performed of the fetus, with image documentation and biometric sergey surements. Biophysical profile was also obtained. Endovaginal scanning: Performed COMPARISON: None. FINDINGS: General: A single living intrauterine gestation is present. Presentation: Vertex Placenta: Placental position is posterior, without previa. Amniotic fluid index: 11.8 cm, normal for gestational age. heart rate: 148 beats per minute. Maternal cervical canal: 5.8 cm long; normal length is 2.5 cm or more. Biophysical profile: Tone: 2 points. Movement: 2 points. Respiration: 0 points. Largest pocket of fluid: 2 points. Umbilical artery Doppler: Not performed IMPRESSION: Single live intrauterine gestation with a 6/8 biophysical profile. Reviewed by: Cristin Mayberry MD on 07/18/2023 5:38 PM PST Approved by: Cristin Mayberry MD on 07/18/2023 5:38 PM PST Station ID: [id number]
== END 2023-07-17 16:01 | disposition home or self-care (01) ==
LOC: DI 16:00
PROVIDERS: ATTEND Obstetrics & Gynecology
DX: O13.3 Gestational [pregnancy-induced] hypertension without significant proteinuria, third trimester (principal); Z3A.00 Weeks of gestation of pregnancy not specified

== ENCOUNTER 2023-07-17 16:01 | Outpatient (CLI) | payer MEDICAID ==
--- NOTE | 2023-07-18 17:37 | Ultrasound Report ---
PROCEDURE: OB Follow up INDICATIONS: OBESITY OUTSIDE/PRIOR DATING DATA: Last menstrual period (LMP): 11/01/2022. LMP-based estimated date of delivery (ASHLEY): Re. First dating scan (date and location): 12/28/2022. Estimated date of delivery (ASHLEY) from first dating scan: 08/06/2023. TECHNIQUE: Real-time scanning was performed of the fetus, with image documentation and biometric measurements. Endovaginal scanning: Not performed. COMPARISON: None. FINDINGS: General: A single living intrauterine gestation is present. Presentation: Vertex Placenta: Placental position is posterior, without previa. Amniotic fluid index: 11.8 cm, within normal limits for gestational age. heart rate: 148 beats per minute. Maternal cervical canal: 5.8 cm long; normal length is 2.5 cm or more. biometrics: Biparietal diameter: 8.8 cm, 35 weeks 4 days, 27.6% Head circumference: 32.8 cm, 37 weeks 1 day, 31.2% Abdominal circumference: 34.6 cm, 38 weeks 4 days, 94.5% Femur length: 7.1 cm, 36 weeks 4 days, 40.8% Estimated gestational age from initial scan: 36 weeks 6 days Composite gestational age from present scan: 37 weeks 0 days Estimated weight and percentile: 3245.4 g, 74.2% Measurement variability in biometric dating: +/- 10 days from 12-20 weeks gestation, +/- 2 weeks from 20-30 weeks gestation, +/- 3 weeks at 30 weeks gestation or more. Other: Not applicable. IMPRESSION: 1. Single live intrauterine gestation with a composite gestational age of 37 weeks 0 days which is co ncordant with dates by initial scan. 2. Estimated weight percentile of 74.2% Reviewed by: Cristin Mayberry MD on 07/18/2023 5:36 PM PST Approved by: Cristin Mayberry MD on 07/18/2023 5:36 PM PST Station ID: [id number]
== END 2023-07-17 16:02 | disposition home or self-care (01) ==
LOC: DI 16:01
PROVIDERS: ATTEND Obstetrics & Gynecology
DX: O09.93 Supervision of high risk pregnancy, unspecified, third trimester (principal); O99.213 Obesity complicating pregnancy, third trimester; Z3A.37 37 weeks gestation of pregnancy

== ENCOUNTER 2023-07-21 07:54 | Outpatient (CLI) | payer MEDICAID ==
[2023-07-21 09:11] VITALS: BP 130/80
--- NOTE | 2023-07-30 20:27 | PROCEDURE REPORT ---
- HPI Diagnosis/Indication for NST: Other (obesity, gestational htn.) Current EDU 08/08/23 Gestation 37 Weeks and 3 Days 2 Para 0 Vital Signs Temperature 97.5 F L 07/21/23 08:07 Heart Rate 86 07/21/23 08:07 Respiratory Rate 16 07/21/23 08:07 Blood Pressure 132/80 H 07/21/23 08:07 Temperature 97.5 F L 07/21/23 08:40 Heart Rate 84 07/21/23 08:40 Respiratory Rate 16 07/21/23 08:40 Blood Pressure 130/80 07/21/23 08:40 O2 Saturation If not protocol: Oxygen Flow, liters/minute - NST Procedure NST Procedure Start Date 07/21/23 Start Time 08:04 Stop Time 08:40 Vibroacoustic Stimulation Used No Patient States Movement Yes - Results and Plan Findings/Impression: NST reviewed. NOrmal baseline, moderate variability. acels and no decels. reactive NST. care as scheduled.
== END 2023-07-21 08:43 | disposition home or self-care (01) ==
LOC: WFO 07:54 → FBP 07:56 → WFO 08:43
PROVIDERS: ATTEND Obstetrics & Gynecology
DX: O13.3 Gestational [pregnancy-induced] hypertension without significant proteinuria, third trimester (principal); O99.213 Obesity complicating pregnancy, third trimester; Z3A.37 37 weeks gestation of pregnancy
CPT/HCPCS: 59025; 82570; 84156

== ENCOUNTER 2023-07-21 08:00 | Outpatient (CLI) | payer MEDICAID ==
[2023-07-21 12:31] LABS: PROTEIN/CREATININE RATIO,URINE 0.1 (<=0.2)
== END 2023-07-21 23:59 | disposition home or self-care (01) ==
LOC: LAB.WC 08:00
PROVIDERS: ATTEND Nurse Practitioner
DX: R03.0 Elevated blood-pressure reading, without diagnosis of hypertension (principal)
CPT/HCPCS: 82570; 84156

== ENCOUNTER 2023-07-24 15:07 | Outpatient (CLI) | payer MEDICAID ==
[2023-07-24 15:43] VITALS: BP 148/87
--- NOTE | 2023-07-25 14:31 | PROCEDURE REPORT ---
- HPI Current EDU 08/08/23 Gestation 37 Weeks and 6 Days 2 Para 0 Vital Signs Temperature 97.9 F 07/24/23 15:17 Temperature 97.9 F 07/24/23 15:17 Heart Rate 78 07/24/23 15:21 Respiratory Rate 18 07/24/23 15:21 Blood Pressure 148/87 H 07/24/23 15:36 O2 Saturation If not protocol: Oxygen Flow, liters/minute - NST Procedure NST Procedure Start Date 07/24/23 Start Time 15:16 Stop Time 16:07 Patient States Movement Yes - Results and Plan Plan: Patient is a 23-year-old -0-1-0 at 37 weeks 6 days gestation here for NST. NST Performed 07/24/2023 NST Read 07/24/2023 FHT: 130 bpm baseline, moderate variability, accelerations present, no decelerations. Reactive NST Diagnosis 37 weeks gestation Chronic hypertension Continue with scheduled OB care
== END 2023-07-24 16:11 | disposition home or self-care (01) ==
LOC: WFO 15:07 → FBP 15:08 → WFO 16:11
PROVIDERS: ATTEND Obstetrics & Gynecology
DX: O13.3 Gestational [pregnancy-induced] hypertension without significant proteinuria, third trimester (principal); Z3A.37 37 weeks gestation of pregnancy
CPT/HCPCS: 59025

== ENCOUNTER 2023-07-24 16:15 | Outpatient (CLI) | payer MEDICAID ==
--- NOTE | 2023-07-25 14:18 | Ultrasound Report ---
PROCEDURE: OB Biophysical Profile INDICATIONS: GESTATIONAL HYPERTENSION OUTSIDE/PRIOR DATING DATA: Last menstrual period (LMP): 11/01/2022. LMP-based estimated date of delivery (ASHLEY): 08/08/2023. First dating scan (date and location): 12/28/2022. Estimated date of delivery (ASHLEY) from first dating scan: 08/06/2023. The below data below was generated using the clinical ASHLEY of 08/08/2023 TECHNIQUE: Real-time scanning was performed of the fetus, with image documentation. Biophysical pro file was also obtained. Endovaginal scanning: Not performed COMPARISON: None. FINDINGS: General: A single living intrauterine gestation is present. Presentation: Vertex Placenta: Placental position is posterior, without previa. Amniotic fluid index: 17.7 cm, normal for gestational age. heart rate: 130 beats per minute. Maternal cervical canal: 6.1 cm long; normal length is 2.5 cm or more. Biophysical profile: Tone: 2 points. Movement: 2 points. Respiration: 2 points. Largest pocket of fluid: 2 points. IMPRESSION: Single living intrauterine at 37 weeks 6 days, ASHLEY of 08/08/2023. BPP 8 of 8. Reviewed by: Cruz Reece MD on 07/25/2023 2:17 PM PST Approved by: Cruz Reece MD on 07/25/2023 2:17 PM PST Station ID: [id number]
== END 2023-07-24 16:16 | disposition home or self-care (01) ==
LOC: DI 16:15
PROVIDERS: ATTEND Obstetrics & Gynecology
DX: O13.3 Gestational [pregnancy-induced] hypertension without significant proteinuria, third trimester (principal); Z3A.37 37 weeks gestation of pregnancy

== ENCOUNTER 2023-07-28 09:54 | Outpatient (CLI) | payer MEDICAID ==
[2023-07-28 10:12] VITALS: BP 134/85
--- NOTE | 2023-07-29 00:30 | PROCEDURE REPORT ---
- HPI Diagnosis/Indication for NST: Gestational Hypertension Current EDU 08/08/23 Gestation 38 Weeks and 3 Days 2 Para 0 Vital Signs Temperature 98.2 F 07/28/23 10:06 Heart Rate 100 07/28/23 10:06 Respiratory Rate 18 07/28/23 10:06 Blood Pressure 134/85 H 07/28/23 10:06 Temperature 98.2 F 07/28/23 10:06 Heart Rate 100 07/28/23 10:06 Respiratory Rate 18 07/28/23 10:06 Blood Pressure 134/85 H 07/28/23 10:06 O2 Saturation If not protocol: Oxygen Flow, liters/minute - NST Procedure NST Procedure Start Date 07/28/23 Start Time 10:07 Stop Time 10:37 Vibroacoustic Stimulation Used Yes Patient States Movement Yes - Results and Plan Findings/Impression: nst reviewed. baseline 140. moderate variability. + acels. no decels. reactive nst. Plan: as scheduled
== END 2023-07-28 10:45 | disposition home or self-care (01) ==
LOC: WFO 09:54 → FBP 09:58 → WFO 10:45
PROVIDERS: ATTEND Obstetrics & Gynecology
DX: O13.3 Gestational [pregnancy-induced] hypertension without significant proteinuria, third trimester (principal); Z3A.38 38 weeks gestation of pregnancy
CPT/HCPCS: 59025

== ENCOUNTER 2023-08-01 10:53 | Inpatient (IN) | payer MEDICAID ==
[2023-08-01] MEDS ORDERED: OXYTOCIN 10 UNIT/ML VIAL IM PRN (11:27)
[2023-08-01] MEDS ORDERED: NIFEdipine 10 MG CAPSULE PO PRN (11:27)
[2023-08-01] MEDS ORDERED: TERBUTALINE 1 MG/ML VIAL SUBQ PRN (11:27)
[2023-08-01] MEDS ORDERED: miSOPROStoL 200 MCG TABLET BC PRN (11:27)
[2023-08-01] MEDS ORDERED: OXYTOCIN/SODIUM CHLORIDE 500 ML IV PRN (11:27)
[2023-08-01] MEDS ORDERED: hydrALAZINE INJ 20 MG/ML VIAL IVP PRN ×2 (11:27)
[2023-08-01] MEDS ORDERED: LABETALOL 20 MG/4 ML SYRINGE IVP PRN ×3 (11:27)
[2023-08-01] MEDS ORDERED: METHYLERGONOVINE 0.2 MG/ML VIAL IM PRN (11:27)
[2023-08-01] MEDS ORDERED: ACETAMINOPHEN 500 MG TABLET PO PRN (11:27)
[2023-08-01] MEDS ORDERED: miSOPROStoL 200 MCG TABLET PR PRN (11:27)
[2023-08-01] MEDS ORDERED: fentaNYL 100 MCG/2 ML VIAL IVP PRN (11:27)
[2023-08-01] MEDS ORDERED: SODIUM CHLORIDE FLUSH 0.9% 10 ML SYRINGE IVP PRN (11:27)
[2023-08-01] MEDS ORDERED: TRANEXAMIC ACID IN NACL 1,000 MG/100 ML BAG IV PRN (11:27)
[2023-08-01] MEDS ORDERED: ONDANSETRON ODT 4 MG TABLET TL PRN (11:27)
[2023-08-01] MEDS ORDERED: lidocaine 1% 20 ML MDV ID PRN (11:27)
--- NOTE | 2023-08-01 11:33 | HISTORY & PHYSICAL EXAMINATION ---
History - Past Medical History Cardiovascular: reports: None Respiratory: reports: None Neuro: reports: None Endocrine/Autoimmune: reports: None GI: reports: None : reports: None Psych: reports: None, Depression, Anxiety, Claustrophobia Musculoskeletal: reports: None Derm: reports: None MRSA Hx?: No - Past Surgical History Ortho: reports: Arthroscopic surgery HEENT: reports: Tonsil/Adenoidectomy Meds/Allgy - Home Medications Home Medications: Ambulatory Orders Medication Instructions Recorded Confirmed buPROPion [Wellbutrin Xl] 150 mg PO DAILY 02/19/22 07/17/23 Labetalol [Trandate] 200 mg PO BID 07/17/23 07/17/23 - Allergies Allergies/Adverse Reactions: Allergies Allergy/AdvReac Type Severity Reaction Status Date / Time nickel Allergy Intermediate Rash Verified 02/25/22 12:15
--- NOTE | 2023-08-01 12:18 | PHARMACY PROGRESS NOTE ---
- Best Possible Medication History Admit Date and Time: 08/01/23 1127 Processed by: Pharmacy Medications reviewed in ED?: No Medication History completed: Yes Secondary Source(s): Insurance records, Previous admit records As the person ultimately responsible for medication therapy, providers are able to order a medication from an existing home medication list in [facility] via the "Reconcile Routine" prior to Confirmation of that medication by sales support representative. Such practice is discouraged except when the physician, in their clinical judgment, deems that a medical need exists for a medication without regard to previous use.
--- NOTE | 2023-08-01 12:22 | HISTORY & PHYSICAL EXAMINATION ---
Admit History - : 2 : 1 Complications This : positive: Chronic HTN Smoking Status: Never smoker - Mother's Labs Mother's Blood Type: positive: O Mother's RH: positive: Positive GBS: positive: Group B Step Negative Rubella Status: positive: Immune - Other Maternal History Other Maternal History: HPI: . She has good movement. Denies loss of fluid. No ANTONIO/BV or RUQP. No vaginal bleeding. Denies nausea and vomiting. Denies urinary urgency or dysuria. All other symptoms reviewed and were negative except per HPI. Course LMP: 11/01/22 ASHLEY by LMP: 08/08/23 US:12/28/22@ 8w3d (08/06/23) c/w LMP Final ASHLEY:08/08/23 Problems: BMI>30, asthma Pre- Weight:258.8 BMI: 43.22 WEIGHT LOSS IN complex relationship with weight - active horseback rider Has lost 25# initiall- was very N/V, now has returned to regular eating habits, diverse diet. started ASA at 19w, stopped since. Family hx of lupus/ sjogrens. Some dry mouth, but not impressive. Workup negative. Varicell non-immune Chronic Hypertesion: Started labetolol 100mg BID. Baseline labs normal. Anticipate 39-week induction. -Multiple blood pressure in 140s-150s in 1364-1970. Never started on medications prior. Blood type:O+ Antibody: Negative CBC: PLT 287 HCT 38.2 HGB 12.8 RUB:Immune VZV:NON Immune HBsAg: Negative HepC: Non reactive RPR/AB-EIA:Non reactive HIV: Non reactive PAP:05/23/2022 NORMAL GC/CT:Negative HSV:denies self or partner Genetic testing: NIPT normal. AFP ordered 02/10/23- negative Covid:X2 Flu: 03/14 FAS: ordered 02/10 Placenta:posterior Cord:3VC CHARLES:Normal EFW:303g 43rd%ile 50gm OGCT: ORdered 04/07 TDAP: 06/02/23 Breast Pump: completed RSV 06/16 3rd trimester CBC: 11.1/34.2%/230 GBS: 07/14- Negative Delivery plan: 39-week induction 07/31 0800. Consents signed 07/27 Contraception: Condoms vs mirena. Considering 6-week PMH Chronic hypertension Anxiety Depression Reactive airway PSH Right knee surgery Tonsilectomy D&C OB History 1. 9822, 10 weeks, SAB, D&C SH Denies tobacco, alcohol, Drugs Family History Mother: Depression, PTSD, Lupus, Thyroid disease Father: Asthma Sister Thyroid disease Allergies Nickel Medications Labetalol 200mg BID Physical exam: General: Alert, oriented, no acute distress Head: Normal cephalic atraumatic Eyes: PERRLA, extraocular motions intact. Respiratory: Normal rate of respiration. No accessory muscle use, normal respiratory effort. Cardiovascular: Regular rate and rhythm Abdomen: Gravid, nontender, nondistended Extremities: Normal range of motion Neuro: Oriented x3. Normal movements Psych: Appropriate mood and affect. Normal judgment and insight SVE: 0/0//-3 FHT: 140 BPM baseline, accelerations present, no decelerations. Category 1 [place]: quiescent Plan Induction of labor -Admit for cervical ripening. If successful, can admit for labor -Misoprostol 25mcg PV every 4 hours -Epidural at patient's request. 39-weeks gestation Chronic hypertension -Continue home labetalol Obesity class 3 with prepregnancy BMI 43 Depression -Continue home buproprion - HPI Current EDU 08/08/23 Gestation 39 Weeks and 0 Days 2 Vital Signs Temperature 98.2 F 08/01/23 11:27 Heart Rate 107 H 08/01/23 11:27 Respiratory Rate 18 08/01/23 11:27 Blood Pressure 140/79 H 08/01/23 11:27 Temperature 98.2 F 08/01/23 11:27 Heart Rate 107 H 08/01/23 11:27 Respiratory Rate 18 08/01/23 11:27 Blood Pressure 140/79 H 08/01/23 11:27 O2 Saturation If not protocol: Oxygen Flow, liters/minute - NST Procedure NST Procedure Start Time 10:07 Stop Time 10:37 Meds/Allgy - Home Medications Home Medications: Ambulatory Orders Medication Instructions Recorded Confirmed buPROPion [Wellbutrin Xl] 150 mg PO DAILY 02/19/22 07/17/23 Labetalol [Trandate] 200 mg PO BID 07/17/23 07/17/23 - Allergies Allergies/Adverse Reactions: Allergies Allergy/AdvReac Type Severity Reaction Status Date / Time nickel Allergy Intermediate Rash Verified 02/25/22 12:15 Physical - Abdominal Exam Vital Signs: Temp Pulse Resp BP Pulse Ox O2 Flow Rate 98.2 F 107 H 18 140/79 H 08/01/23 11:27 08/01/23 11:27 08/01/23 11:27 08/01/23 11:27 Plan for Labor - Plan For Labor I expect patient to be DC'd or transferred within 96 hours.: Yes
[2023-08-01] MEDS: LACTATED RINGERS 1,000 ML IV SCH (12:52)
[2023-08-01] MEDS: SODIUM CHLORIDE FLUSH 0.9% 10 ML SYRINGE IVP SCH (12:52)
[2023-08-01] MEDS: miSOPROStoL 100 MCG TABLET VG SCH (12:57)
[2023-08-01 13:52] LABS: BASOPHILS % (AUTO) 0.3 %; EOSINOPHILS % (AUTO) 0.3 %; HCT - HEMATOCRIT 32.1 % (37.0-47.0); HGB - HEMOGLOBIN 10.7 g/dL (12.0-16.0); LYMPHOCYTES # (AUTO) 1.6 10^3/uL (1.5-3.5); LYMPHOCYTES % (AUTO) 17.9 %; MEAN CORPUSCULAR HEMOGLOBIN 29.5 pg (27.0-31.0); MEAN CORPUSCULAR HGB CONC 33.3 g/dL (32.0-36.0); MEAN CORPUSCULAR VOLUME 88.4 fL (81.0-99.0); MEAN PLATELET VOLUME 10.6 fL (7.9-10.8); MONOCYTES # (AUTO) 0.5 10^3/uL (0.0-1.0); MONOCYTES % (AUTO) 5.3 %; NEUTROPHILS # (AUTO) 6.9 10^3/uL (1.5-6.6); NEUTROPHILS % (AUTO) 75.7 %; PLT - PLATELET COUNT 231 10^3/uL (130-450); RED BLOOD COUNT 3.63 10^6/uL (4.20-5.40); RED CELL DISTRIBUTION WIDTH 13.5 % (12.0-15.0); WHITE BLOOD COUNT 9.2 x10^3/uL (4.8-10.8)
[2023-08-01 13:57] LABS: ALBUMIN 3.6 g/dL (3.2-5.5); ALBUMIN/GLOBULIN RATIO 1.3 (1.0-2.2); BILIRUBIN,TOTAL 0.4 mg/dL (0.2-1.0); CALCIUM 9.4 mg/dL (8.5-10.3); CREATININE 0.6 mg/dL (0.6-1.3); POTASSIUM 3.6 mmol/L (3.5-4.5); TOTAL PROTEIN 6.3 g/dL (6.4-8.9)
--- NOTE | 2023-08-01 19:02 | PROVIDER PROGRESS NOTE ---
Labor Progress Note - Uterine Monitoring Uterine Monitoring Mode: positive: External toco Contraction Frequency (min/apart): Irritable - Monitoring Monitor Mode: positive: External ultrasound Heart Rate Baseline: 135 Heart Rate Variability: positive: Moderate (6-25 bmp) Accelerations: positive: Present, 15x15 Decelerations: positive: None Strip Review: positive: Category I - Labor Progress Note Labor Progress Note/Additional Text: Receiving misoprostol. Anticipate AROM when more favorable. Currently doing well and category 1.
[2023-08-01] MEDS ORDERED: LABETALOL 100 MG TABLET PO SCH (21:00)
[2023-08-01] MEDS: LABETALOL 100 MG TABLET PO SCH (22:14)
[2023-08-01] MEDS: buPROPion XL 150 MG TABLET PO SCH (22:38)
[2023-08-02] MEDS: LACTATED RINGERS 200 ML IV ONE (00:04)
[2023-08-02] MEDS: LACTATED RINGERS 400 ML IV ONE (00:04)
[2023-08-02] MEDS ORDERED: ceFAZolin (2G) 2 GM in SODIUM CHLORIDE 0.9% MINIBAG 100 ML IV ONE ×2 (07:00→22:00)
--- NOTE | 2023-08-02 08:25 | PROVIDER PROGRESS NOTE ---
Labor Progress Note - Uterine Monitoring Uterine Monitoring Mode: positive: External toco Contraction Frequency (min/apart): Irregular - Monitoring Monitor Mode: positive: External ultrasound Heart Rate Baseline: 135 Accelerations: positive: Present, 15x15 Decelerations: positive: None Strip Review: positive: Category I - Labor Progress Note Labor Progress Note/Additional Text: Has received 5 doses of misoprostol. Plan to check again in 2 hours and assess for misoprostol versus oxytocin.
--- NOTE | 2023-08-02 10:55 | PROVIDER PROGRESS NOTE ---
Labor Progress Note - Uterine Monitoring Uterine Monitoring Mode: positive: External toco Contraction Frequency (min/apart): 2-4 Contraction Intensity: positive: Mild - Monitoring Monitor Mode: positive: External ultrasound Heart Rate Baseline: 135 Heart Rate Variability: positive: Moderate (6-25 bmp) Accelerations: positive: Present, 15x15 Decelerations: positive: None Strip Review: positive: Category I - Vaginal Exam Dilation (in cm): 0.5 Effacement (%): 0 Station: -3 - Labor Progress Note Labor Progress Note/Additional Text: Patient with tight cervix. Will give 6th dose of misoprostol. Discussed CRB at next check.
--- NOTE | 2023-08-02 16:03 | PROVIDER PROGRESS NOTE ---
Labor Progress Note - Uterine Monitoring Uterine Monitoring Mode: positive: External toco Contraction Frequency (min/apart): irregular Contraction Intensity: positive: Mild to moderate - Monitoring Monitor Mode: positive: External ultrasound Heart Rate Baseline: 130 Heart Rate Variability: positive: Moderate (6-25 bmp) Accelerations: positive: Present, 15x15 Decelerations: positive: None - Vaginal Exam Dilation (in cm): 0.5 Effacement (%): 0 Station: -3 - Labor Progress Note Labor Progress Note/Additional Text: Patient is tired and requesting section. Feels like 24 hours of induction without change is a bad sign and that all the females in her family had sections. section was recommended. Risks, benefits and alternatives were d iscussed including but not limited to infection, bleeding that may require blood products or hysterectomy for life saving measures, injury to surrounding organs including but not limited to bowel, bladder, ureters, tubes and ovaries and/or the baby. Should injury occur it could require longer/additional surgery to repair. Counseled on the likelihood of not being able to TOLAC in most practices without a prior vaginal delivery . The patient stated understanding and desired to proceed. All questions were answered posed by patient. She ate lunch less than 1 hour ago. Discussed recommendation with anesthesia to wait 8 hours prior to surgery if stable, and I believe that is in her best interest as heart tracing in category 1 and remote from delivery. Rather than a scheduled 12AM section, I believe it is better for safety to schedule an 8AM surgery with a rested team for a non-urgent case. Patien expresses understanding. Due to daylight savings time adjustments, will be NPO at 2300.
[2023-08-02] MEDS ORDERED: CITRIC ACID/SODIUM CITRATE 15 ML UDC PO ONE (20:53)
[2023-08-02] MEDS: LACTATED RINGERS 1,000 ML IV PRN (20:58)
--- NOTE | 2023-08-02 21:23 | PROVIDER PROGRESS NOTE ---
Labor Progress Note - Uterine Monitoring Uterine Monitoring Mode: positive: External toco Contraction Frequency (min/apart): 4-7 - Monitoring Monitor Mode: positive: External ultrasound Heart Rate Baseline: 135 Heart Rate Variability: positive: Moderate (6-25 bmp) Accelerations: positive: Present, 15x15 Decelerations: positive: Early Strip Review: positive: Category I - Vaginal Exam Dilation (in cm): 2 Effacement (%): 50 Station: -3 - Labor Progress Note Labor Progress Note/Additional Text: Patient ruptured spontaneously. 2cm but desires . Antibiotics ordered and team called in. Consents previously signed and discussed with patient without further questions.
[2023-08-02] MEDS ORDERED: fentaNYL 100 MCG/2 ML VIAL ONE (21:41)
[2023-08-02] MEDS ORDERED: CARBOPROST TROMETHAMINE 250 MCG/ML VIAL IM ONE ×2 (21:55→21:57)
[2023-08-02] MEDS ORDERED: OXYTOCIN 10 UNIT/ML VIAL ONE (21:56)
[2023-08-02] MEDS ORDERED: AZITHROMYCIN INJ 500 MG in SODIUM CHLORIDE 0.9% 250 ML IV ONE (22:00)
[2023-08-02] MEDS ORDERED: ONDANSETRON 4 MG/2 ML VIAL ONE (22:22)
[2023-08-02] MEDS ORDERED: KETOROLAC 30 MG/ML VIAL ONE (22:22)
[2023-08-02] MEDS ORDERED: ACETAMINOPHEN 1,000 MG/100 ML 1,000 MG/100 ML BAG IV ONE (22:22)
[2023-08-02] MEDS ORDERED: SODIUM CHLORIDE 0.9% 10 ML VIAL IVP ONE ×2 (22:47→23:42)
[2023-08-02] MEDS ORDERED: ROPIVACAINE 0.5% PF 20 ML VIAL ONE ×2 (22:47→22:48)
[2023-08-02] MEDS ORDERED: DEXAMETHASONE 4 MG/ML VIAL ONE (22:48)
[2023-08-02] MEDS ORDERED: ONDANSETRON ODT 4 MG TABLET TL PRN ×2 (23:08)
[2023-08-02] MEDS ORDERED: oxyCODONE 5 MG TABLET PO PRN (23:08)
[2023-08-02] MEDS ORDERED: SODIUM CHLORIDE FLUSH 0.9% 10 ML SYRINGE IVP PRN (23:08)
[2023-08-02] MEDS ORDERED: OXYTOCIN/SODIUM CHLORIDE 500 ML IV PRN (23:08)
--- NOTE | 2023-08-02 23:08 | OPERATIVE REPORT ---
Operative Report - General Admit Date: 08/01/23 Procedure Date: 08/02/23 Planned Procedure: Low-transverse section Procedure Performed: Low-transverse section - Procedure Note Primary Surgeon: Suhas Fowler MD Secondary Surgeon: STEFFEN Dodge Anesthesia Provider: Radha Crouch CRNA Anesthesia Technique: Spinal Pathology: None Estimated Blood Loss (mL): 700 Urine Output (mL): 300 Findings: Normal-appearing uterus, tubes, ovaries. Delivery of live calhoun female Complications: None - Other Other Information/Narrative: Pre-Op diagnoses 39 weeks gestation Chronic hypertension Failed induction Obesity class III Postop diagnoses Same Delivery of live calhoun Status post primary low-transverse section section was recommended. Risks, benefits and alternatives were discussed including but not limited to infection, bleeding that may require blood products or hysterectomy for life saving measures, injury to surrounding organs including but not limited to bowel, bladder, ureters, tubes and ovaries and/or the baby. Should injury occur it could require longer/additional surgery to repair. The patient stated understanding and desired to proceed. All questions were answered posed by patient. Prior to being surgery, 2 grams of cefazolin IV was administered. The patient was taken to the operating room where regional anesthesia was found to be adequate. She was then prepared and draped in the usual sterile fashion in the dorsal supine position with a leftward tilt displacing the uterus. She received a Betadine vaginal prep. Connors was draining to gravity. SCDs were on bilateral lower extremities. Time out was taken. A pfannenstiel skin incision was then made with the scalpel and carried through to the underlying layer of fascia. The fascia was incised in the midline and the incision extended laterally with the Sanabria scissors. The superior aspect of the facial incision was then grasped with the Brennan clamps, elevated and the underlying rectus muscles dissected off sharply. Attention was then turned to the inferior aspect of this incision which in a similar fashion was grasped, elevated with the Brennan clamps and the rectus muscle dissected off sharply. The rectus muscles were in the midline. The peritoneum identified, grasped with the pick-ups and entered sharply with the Metzenbaum scissors. The peritoneal incision was then extended superiorly and inferiorly with good visualization of the bladder. The bladder blade was inserted. The vesicouterine peritoneum was identified, grasped with the pick-ups, and entered sharply with Metzenbaum scissors. This incision was then extended laterally and the bladder flap created digitally. The bladder blade was reinserted. The lower uterine segment was identified and incised in a transverse fashion with the scalpel. The uterine incision was then extended bluntly laterally. There is a small amount of remaining clear amniotic fluid. The bladder blade was removed. The fetus was in a cephalic presentation. The infants head delivered atraumatically. The anterior shoulders were delivered followed by the posterior shoulders then the remainder of the body. The infants mouth and nose were bulb suctioned. The umbilical cord was clamped times two and cut. The infant was handed to the pediatric team. The placenta was removed with gentle traction. Oxytocin was added to the IV fluid and was allowed to run freely. The uterus was exteriorized and cleared of all clots and debris. The uterine incision was inspected and found to be without any extensions and was repaired with 0 Vicryl in a running, locked fashion. A second imbricating layer was performed. Upon inspection, the repaired hysterot johanna was found to be hemostatic. The uterus was firm and returned to the abdomen. The gutters were cleared of all clots and debris. The muscle layer was examined and found to be hemostatic. The fascia was reapproximated with 0 Vicryl in a running fashion. The subcutaneous tissue was closed with 2-0 Vicryl. The skin was closed in a subcuticular fashion with 4-0 Monocryl. The patient tolerated the procedure well. Sponge, lap and needle counts were correct times three. The patient was taken to the recovery room in stable condition. I appreciate the assistance of Preethi Kessler during this procedure, and the assistance in retraction, visualization, dissection, and overall assistance during the case were instrumental to the patient's wellbeing.
[2023-08-03] MEDS ORDERED: METOCLOPRAMIDE 10 MG/2 ML VIAL IVP PRN (00:58)
[2023-08-03] MEDS ORDERED: ATROPINE ABBOJECT 1 MG/10 ML SYRINGE IVP PRN (00:58)
[2023-08-03] MEDS ORDERED: ONDANSETRON 4 MG/2 ML VIAL IVP PRN (00:58)
[2023-08-03] MEDS ORDERED: HYDROmorphone 0.5 MG/0.5 ML SYRINGE IVP PRN (00:58)
[2023-08-03] MEDS ORDERED: fentaNYL 100 MCG/2 ML VIAL IVP PRN (00:58)
[2023-08-03] MEDS ORDERED: MORPHINE 2 MG/ML CARPUJECT IVP PRN (00:58)
[2023-08-03] MEDS ORDERED: ePHEDrine 50 MG/ML VIAL IVP PRN (00:58)
[2023-08-03] MEDS ORDERED: NALOXONE 0.4 MG/ML VIAL IVP PRN (00:58)
[2023-08-03] MEDS ORDERED: SODIUM CHLORIDE FLUSH 0.9% 10 ML SYRINGE IVP SCH (01:00)
[2023-08-03] MEDS ORDERED: LACTATED RINGERS 1,000 ML IV SCH ×2 (01:00→07:00)
--- NOTE | 2023-08-03 01:02 | ANESTHESIA POST OP EVALUATION ---
Anesthesia Post Eval - Post Anesthesia Eval Vitals: Last Vital Signs Temp 36.2 C L 08/03/23 00:45 Pulse 63 08/03/23 00:45 Resp 18 08/03/23 00:45 BP 129/73 08/03/23 00:45 Pulse Ox 97 08/03/23 00:45 O2 Flow Rate CV Function Including HR & BP: Stable Pain Control: Satisfactory Nausea & Vomiting: Negative Mental Status: Baseline Respiratory Status: Airway Patent Hydration Status: Satisfactory Anesthesia Complications: None
--- NOTE | 2023-08-03 01:02 | ANESTHESIA ---
Pre-Anesthesia VS, & Labs - Diagnosis failure of induction - Procedure C/S Vital Signs: Temp Pulse Resp BP Pulse Ox O2 Flow Rate 36.6 C 64 16 131/73 H 99 08/03/23 00:04 08/03/23 00:20 08/03/23 00:20 08/03/23 00:20 08/03/23 00:20 Height: 5 ft 5 in Weight (kg): 121.563 kg Body Mass Index: 44.6 BMI Classification: Morbidly Obese - NPO Other (ate hamburger 1999) - Is Patient ?: Yes - Lab Results Current Lab Results: Laboratory Tests 08/01/23 13:30: WBC 9.2, RBC 3.63 L, Hgb 10.7 L, Hct 32.1 L, MCV 88.4, MCH 29.5, MCHC 33.3, RDW 13.5, Plt Count 231, MPV 10.6, Neut # (Auto) 6.9 H, Lymph # (Auto) 1.6, [place] # (Auto) 0.5, Eos # (Auto) 0.0, Baso # (Auto) 0.0, Absolute Nucleated RBC 0.00, Nucleated RBC % 0.0 08/01/23 13:30: Sodium 136, Potassium 3.6, Chloride 105, Carbon Dioxide 23, Anion Gap 8.0, BUN 9, Creatinine 0.6, Estimated GFR (MDRD) 123, Glucose 119 H, Calcium 9.4, Total Bilirubin 0.4, AST 15, ALT 12, Alkaline Phosphatase 184 H, Total Protein 6.3 L, Albumin 3.6, Globulin 2.7, Albumin/Globulin Ratio 1.3 08/01/23 12:30: Blood Type O POSITIVE, Antibody Screen NEGATIVE Fish Bones: 08/01/23 13:30 08/01/23 13:30 Home Medications and Allergies Home Medications: Ambulatory Orders Loratadine [Claritin] 10 mg PO 08/01/23 Active Medications Acetaminophen (Acetaminophen 500 Mg Tablet) 1,000 mg PO Q6HR PRN PRN Reason: Pain or Fever > 38C (100.4F) Acetaminophen (Acetaminophen 500 Mg Tablet) 1,000 mg PO Q8H ADE Bupropion HCl (Bupropion Xl 150 Mg Tablet) 150 mg PO HS ADE Last Admin: 08/01/23 22:38 Dose: 150 mg Docusate Sodium (Docusate Sodium 100 Mg Capsule) 100 mg PO BID [facility] Fentanyl (Fentanyl 100 Mcg/2 Ml Vial) 50 mcg IVP Q1H PRN PRN Reason: Severe Pain (score 7-10) Hydralazine HCl (Hydralazine Inj 20 Mg/Ml Vial) 10 mg IVP .ONCE PRN; Protocol PRN Reason: SBP> or= 160 OR DBP> or= 110 Hydralazine HCl (Hydralazine Inj 20 Mg/Ml Vial) 5 - 10 mg IVP Q20M PRN; Protocol PRN Reason: SBP> or= 160 OR DBP> or= 110 Oxytocin/Sodium Chloride (Pitocin/Sodium Chloride) 500 mls @ 999 mls/hr IV PRN PRN; Protocol PRN Reason: POST- HEMORR PREVENTION Tranexamic Acid (Tranexamic 1,000 Mg/100ml-Nacl) 1,000 mg in 100 mls @ 600 mls/hr IV Q30M PRN PRN Reason: EBL >1200mL and within 3hr Lactated Ringer's (Lr) 1,000 mls @ 125 mls/hr IV .Q8H [facility] Last Admin: 08/02/23 11:38 Dose: Not Given Lactated Ringer's (Lr) 1,000 mls @ 999 mls/hr IV PRN PRN PRN Reason: PER PHYSICIAN ORDER Last Admin: 08/02/23 20:58 Dose: 999 mls/hr Lactated Ringer's (Lr) 1,000 mls @ 125 mls/hr IV .Q8H [facility] Lactated Ringer's (Lr) 1,000 mls @ 100 mls/hr IV .Q10H [facility] Oxytocin/Sodium Chloride (Pitocin/Sodium Chloride) 500 mls @ 999 mls/hr IV PRN PRN; Protocol PRN Reason: POST- HEMORR PREVENTION Ibuprofen (Ibuprofen 600 Mg Tablet) 600 mg PO Q6H [facility] Ketorolac Tromethamine (Ketorolac 30 Mg/Ml Vial) 30 mg IVP Q6H [facility] Stop: 08/03/23 17:46 Labetalol HCl (Labetalol 20 Mg/4 Ml Syringe) 20 mg IVP .ONCE PRN; Protocol PRN Reason: SBP> or= 160 OR DBP> or= 110 Labetalol HCl (Labetalol 20 Mg/4 Ml Syringe) 20 - 80 mg IVP Q10M PRN; Protocol PRN Reason: SBP> or= 160 OR DBP> or= 110 Labetalol HCl (Labetalol 20 Mg/4 Ml Syringe) 20 - 40 mg IVP Q10M PRN; Protocol PRN Reason: SBP> or= 160 OR DBP> or= 110 Labetalol HCl (Labetalol 100 Mg Tablet) 100 mg PO BID [facility] Last Admin: 08/02/23 09:34 Dose: 100 mg Lidocaine HCl (Lidocaine 1% 20 Ml Mdv) 20 ml ID .ONCE PRN PRN Reason: PERINEAL REPAIR Stop: 08/04/23 11:27 Methylergonovine Maleate (Methylergonovine 0.2 Mg/Ml Vial) 0.2 mg IM .ONCE PRN PRN Reason: Hemorrhage Misoprostol (Misoprostol 200 Mcg Tablet) 600 mcg BC .ONCE PRN PRN Reason: Hemorrhage Misoprostol (Misoprostol 200 Mcg Tablet) 800 mcg [place] .ONCE PRN PRN Reason: Hemorrhage Misoprostol (Misoprostol 100 Mcg Tablet) 25 mcg VG Q4H [facility] Last Admin: 08/02/23 11:35 Dose: 25 mcg Nifedipine (Nifedipine 10 Mg Capsule) 10 - 20 mg PO Q20M PRN; Protocol PRN Reason: SBP> or= 160 OR DBP> or= 110 Ondansetron HCl (Ondansetron Odt 4 Mg Tablet) 4 mg TL Q4H PRN PRN Reason: Nausea / Vomiting Ondansetron HCl (Ondansetron Odt 4 Mg Tablet) 4 mg TL Q6HR PRN PRN Reason: Nausea / Vomiting Oxycodone HCl (Oxycodone 5 Mg Tablet) 5 mg PO Q4HR PRN PRN Reason: PAIN Oxytocin (Oxytocin 10 Unit/Ml Vial) 10 unit IM .ONCE PRN PRN Reason: Step One if no IV access. Simethicone (Simethicone Chew 80 Mg Tablet) 80 mg PO TID PRN PRN Reason: Gas Sodium Chloride (Sodium Chloride Flush 0.9% 10 Ml Syringe) 10 ml IVP Q8H [facility] Last Admin: 08/02/23 11:38 Dose: Not Given Sodium Chloride (Sodium Chloride Flush 0.9% 10 Ml Syringe) 10 ml IVP PRN PRN PRN Reason: NEEDED PER PROVIDER ORDERS Sodium Chloride (Sodium Chloride Flush 0.9% 10 Ml Syringe) 10 ml IVP 0100,0900,1700 ADE Sodium Chloride (Sodium Chloride Flush 0.9% 10 Ml Syringe) 10 ml IVP PRN PRN PRN Reason: NEEDED PER PROVIDER ORDERS Terbutaline Sulfate (Terbutaline 1 Mg/Ml Vial) 0.25 mg SUBQ .ONCE PRN PRN Reason: Tachystole buPROPion [Wellbutrin Xl] 150 mg PO DAILY 02/19/22 Labetalol [Trandate] 100 mg PO BID 07/17/23 Loratadine [Claritin] 10 mg PO 08/01/23 Allergies/Adverse Reactions: Allergies Allergy/AdvReac Type Severity Reaction Status Date / Time nickel Allergy Intermediate Rash Verified 02/25/22 12:15 respiratory syncytial virus AdvReac Headache Verified 08/01/23 14:36 vaccine, preF A and B [From Abrysvo] Anes History & Medical History - Anesthetic History Anesthesia Complications: reports: No previous complications Family history of Anesthesia Complications: Denies Family history of Malignant Hyperthermia: Denies - Medical History Cardiovascular: reports: Hypertension Pulmonary: reports: None Gastrointestinal: reports: None Urinary: reports: None Neuro: reports: None Musculoskeletal: reports: None Endocrine/Autoimmune: reports: None Skin: reports: None Smoking Status: Never smoker - Surgical History Eyes Ears Nose Throat (EENT): reports: Tonsil/Adenoidectomy Gynecologic: reports: Dilation and currettage Orthopedic: reports: Arthroscopic surgery - Obstetrical History : 2 Complications: reports: Chronic HTN Exam General: Alert, Cooperative Dental: WNL Mouth Openin Fingerbreadth Neck Mobility: Normal Mallampati classification: III Thyromental Distance: 4-6 cm Respiratory: Lungs clear Cardiovascular: Regular rate Plan Anesthesia Type: Spinal Consent for Procedure(s) Verified and Reviewed: Yes Code Status: Attempt Resuscitation ASA classification: 3-Severe systemic disease Is this case an emergency?: No
[2023-08-03] MEDS: LACTATED RINGERS 1,000 ML IV SCH (01:32)
[2023-08-03] MEDS: KETOROLAC 30 MG/ML VIAL IVP SCH (06:28)
[2023-08-03 06:29] LABS: BASOPHILS # (AUTO) 0.1 10^3/uL (0.0-0.1); BASOPHILS % (AUTO) 0.3 %; EOSINOPHILS % (AUTO) 0.1 %; HCT - HEMATOCRIT 33.2 % (37.0-47.0); HGB - HEMOGLOBIN 10.8 g/dL (12.0-16.0); LYMPHOCYTES % (AUTO) 5.3 %; MEAN CORPUSCULAR HEMOGLOBIN 29.3 pg (27.0-31.0); MEAN CORPUSCULAR HGB CONC 32.5 g/dL (32.0-36.0); MEAN CORPUSCULAR VOLUME 90.2 fL (81.0-99.0); MEAN PLATELET VOLUME 10.7 fL (7.9-10.8); MONOCYTES # (AUTO) 0.3 10^3/uL (0.0-1.0); MONOCYTES % (AUTO) 1.7 %; NEUTROPHILS # (AUTO) 17.7 10^3/uL (1.5-6.6); NEUTROPHILS % (AUTO) 92.2 %; PLT - PLATELET COUNT 236 10^3/uL (130-450); RED BLOOD COUNT 3.68 10^6/uL (4.20-5.40); RED CELL DISTRIBUTION WIDTH 13.4 % (12.0-15.0); WHITE BLOOD COUNT 19.2 x10^3/uL (4.8-10.8)
[2023-08-03] MEDS: ACETAMINOPHEN 500 MG TABLET PO SCH (07:29)
[2023-08-03] MEDS: DOCUSATE SODIUM 100 MG CAPSULE PO SCH (08:39)
--- NOTE | 2023-08-03 09:27 | PROVIDER PROGRESS NOTE ---
Subjective - Subjective Subjective: Subjective Patient reports she is doing well. Lochia appropriate. Denies heavy bleeding. Ambulating. Pelvic and abdominal pain well-controlled. Tolerating oral intake. Diet: Regular. Voiding without difficulty. Passing flatus. Denies BM. Patient is bonding with baby in room Breast feeding going well. Denies feeling lightheaded, dizzy or excessively fatigued. Objective General: Alert, oriented, no apparent distress. Cardiovascular: Regular rate. Regular rhythm. Lungs: No increased work of breathing. Abdomen: Uterus firm. Below umbilicus. No guarding or rebound. Extremities: No pain on palpation. No cords palpated. Distal pulses intact. Incision: Clean, dry, and intact. Assessment and Plan day 1. -Routine care -Anticipate discharge tomorrow Chronic hypertension -Blood pressure well-controlled. Objective - Vital Signs/Intake & Output Vital Signs: Vital Signs x48h Temp Pulse Resp BP Pulse Ox 08/03/23 07:41 98.1 F 66 16 139/78 H 97 08/03/23 04:00 97.5 F L 74 16 139/76 H 95 08/03/23 03:01 63 16 131/79 H 97 08/03/23 01:35 68 16 134/81 H 97 08/03/23 01:15 69 16 133/84 H 97 08/03/23 01:00 61 16 128/71 97 08/03/23 00:45 97.2 F L 63 18 129/73 97 Intake & Output: Intake & Output 07/31/23 08/01/23 08/02/23 08/04/23 23:59 23:59 23:59 00:59 Intake Total 240 500 Output Total 9268 Balance - Lab Results Fish Bones: 08/03/23 06:18 08/01/23 13:30 Other Labs: Lab Results x24hrs 08/03/23 Range/Units 06:18 WBC 19.2 H (4.8-10.8) x10^3/uL RBC 3.68 L (4.20-5.40) 10^6/uL Hgb 10.8 L (12.0-16.0) g/dL Hct 33.2 L (37.0-47.0) % MCV 90.2 (81.0-99.0) fL MCH 29.3 (27.0-31.0) pg MCHC 32.5 (32.0-36.0) g/dL RDW 13.4 (12.0-15.0) % Plt Count 236 (130-450) 10^3/uL MPV 10.7 (7.9-10.8) fL Neut # (Auto) 17.7 H (1.5-6.6) 10^3/uL Lymph # (Auto) 1.0 L (1.5-3.5) 10^3/uL [place] # (Auto) 0.3 (0.0-1.0) 10^3/uL Eos # (Auto) 0.0 (0.0-0.7) 10^3/uL Baso # (Auto) 0.1 (0.0-0.1) 10^3/uL Absolute Nucleated RBC 0.00 x10^3/uL Nucleated RBC % 0.0 /100WBC
[2023-08-03] MEDS: SIMETHICONE CHEW 80 MG TABLET PO PRN (13:33)
[2023-08-04] MEDS ORDERED: KETOROLAC 30 MG/ML VIAL IVP SCH (03:00)
[2023-08-04] MEDS: IBUPROFEN 600 MG TABLET PO SCH (09:00)
[2023-08-04] MEDS: VARICELLA VACCINE LIVE/PF 1,350 UNIT/0.5 ML VIAL SUBQ ONE (15:37)
--- NOTE | 2023-08-04 17:27 | Labor Flowsheet ---
Labor Flowsheet Datetime Report Generated by CPN: 08/04/2023 17:27 Datetime: 08/02/2023 21:48 UTERINE ACTIVITY Monitor Mode: External Quality: Mild Pattern: Normal: <= 5 Contractions in 10 Minutes Resting Tone (Palpate): Relaxed ASSESSMENT A Monitor Mode: External US Variability: Moderate 6-25 bpm Accelerations: 15X15 Decelerations: None Category: Category I Datetime: 08/02/2023 21:47 Comments: PT ready and moved to OR for section. PRovider, [employer] EQU[employer]MENT OPERATOR and circulating nurse at bedside. Datetime: 08/02/2023 21:30 Frequency (min): 2-5 Duration (sec): 60-90 Datetime: 08/02/2023 21:16 Actions for Decelerations: Side to Side Datetime: 08/02/2023 21:05 ANESTHESIA Anesthesia Comments: at bedside for discussion in regards to anesthesia for section. Datetime: 08/02/2023 21:03 FHR Baseline Rate : 135 Datetime: 08/02/2023 21:02 Pain Location: Abdomen LaborFlag: Labor Datetime: 08/02/2023 20:54 COMMUNICATION Communication: Provider at Bedside Datetime: 08/02/2023 20:43 VAGINAL EXAM Dilatation (cm): 2.0 Effacement (%): 50 Station: -3 Exam by: Shannan Sapp RN Vaginal Bleeding: Small Cervix, Consistency: Moderate Cervix, Position: Posterior Datetime: 08/02/2023 20:40 Membrane Status: Ruptured Membranes Rupture Method: Spontaneous Amniotic Fluid Color: Clear Amniotic Fluid Amount: Large Amniotic Fluid Odor: Normal Datetime: 08/02/2023 19:50 Monitor Interventions for UA: [place] Adjusted Datetime: 08/02/2023 19:49 VITAL SIGNS NBP Sys/Olga/Mean (mmHg): 147 : 95 : 107 Pulse: 67 Respirations: 18 Temperature (C): 36.7 Temperature Route: Oral PAIN Pain Scale: 4 Pain Presence: Intermittent Datetime: 08/02/2023 19:00 Contraction Comments: unable to trace d/t maternal movement Datetime: 08/02/2023 18:31 Hygiene: Complete Bath Datetime: 08/02/2023 15:49 Communication Comments: consented for c/s Datetime: 08/02/2023 15:21 Provider Notified (Name): Dr. Malcolm Datetime: 08/02/2023 11:35 MEDICATIONS Cervical Ripening Agents: Cytotec @ 25mcg PV Datetime: 08/02/2023 05:56 Pitocin Checklist: Uterus Palpates Soft between Contractions FHR Baseline Changes: No Baseline Change PATIENT CARE Oxygen Method: Room Air Datetime: 08/02/2023 05:42 Notification Reason: Status Update Datetime: 08/02/2023 05:38 Headache: Denies Nausea/Vomiting: Denies Datetime: 08/02/2023 03:59 Pain Type: Cramping Pain Relief Measures: Comfort Measures MATERNAL ASSESSMENT Level of Consciousness: Alert Breath Sounds, Left: Clear and Equal Breath Sounds, Right: Clear and Equal RUQ Epigastric Pain: Denies Datetime: 08/02/2023 03:25 Patient Position/Activity: Walking I/O Interventions: Up to BR Datetime: 08/02/2023 02:40 Medication Comments: Cytotec not given earlier at 0215 as patient feeling contractions and contract ing q2-3. Held of giving it for25 minutes given at 0238 Datetime: 08/02/2023 02:39 Patient Care Comments: RN at bedside to adjust TOCO monitor Datetime: 08/02/2023 00:00 Monitor Interventions for FHR: Ultrasound Adjusted Pain Coping: Sleeping Datetime: 08/01/2023 22:08 SpO2 (%): 99 Datetime: 08/01/2023 19:23 Pain Assessment Comments: sitting on birthing ball DTR's/Clonus: DTRs 1+; No Clonus Comfort Measures: Breathing/Relaxation TEACHING Instructional Method: Verbal Plan of Care: Plan of Care Discussed Labor/Induction: Labor Stages; Cervical Ripening Related: Nutrition; Activity and Rest Teaching Comments: encouraged to try and rest and relax Datetime: 08/01/2023 17:03 Vaginal Exam Comments: Patient consent obtained proior to SVE. Datetime: 08/01/2023 10:58 Stage of : Labor Datetime: 06/26/2023 16:37 Membranes Ruptured Date/Time: 08/02/2023 20:40
[2023-08-04 17:48] VITALS: BP 136/79; O2SAT 98
--- NOTE | 2023-08-04 23:15 | DISCHARGE SUMMARY ---
"Discharge Summary Admit Date: 08/01/23 Discharge Date: 08/04/23 Discharging Provider: Dorothy Elena MD Code Status: Attempt Resuscitation Condition at Discharge: Good - DIAGNOSES Admission Diagnoses: induction of labor at term. chronic hypertension on labetolol obesity, bmi 44 Discharge Diagnoses with Status of Each Condition: failed induction of labor primary c section for delivery bp stable - HPI History of Present Illness: presents for labor induction due to chronic hypertension. - CONSULTS | PROCEDURES Procedures: misoprostol x 6 doses with no cervical change. primary low transverse c section - HOSPITAL COURSE Hospital Course: admitted for induction. Misoprostol x 6 doses and still 0.5 cm. requested c section and this was done without complication. post care without issue. discharged home on PPD #2. - ALLERGIES Allergies/Adverse Reactions: Allergies Allergy/AdvReac Type Severity Reaction Status Date / Time nickel Allergy Intermediate Rash Verified 02/25/22 12:15 respiratory syncytial virus AdvReac Headache Verified 08/01/23 14:36 vaccine, preF A and B [From Abrysvo] - MEDICATIONS Home Medications: Ambulatory Orders Medication Instructions Recorded Confirmed buPROPion [Wellbutrin Xl] 150 mg PO DAILY 02/19/22 08/01/23 Labetalol [Trandate] 100 mg PO BID 07/17/23 08/01/23 Loratadine [Claritin] 10 mg PO 08/01/23 Acetaminophen 650 mg PO Q4HR PRN #30 ea 08/04/23 Docusate Sodium 100Mg Capsule 100 - 200 mg PO BID PRN #60 cap 08/04/23 [Colace 100Mg Capsule] Ibuprofen [Motrin] 600 mg PO Q6H PRN #30 tab 08/04/23 168/Iron/Folic/Omega3 1 each PO DAILY #90 cap 08/04/23 [One-A-Day -1 Softgel] oxyCODONE [Roxicodone] 5 mg PO Q4HR PRN #12 tab 08/04/23 - PHYSICAL EXAM AT DISCHARGE General Appearance: positive: No acute distress Respiratory: positive: No respiratory distress Cardiovascular: positive: Regular rate & rhythm Abdomen: positive: Non-tender, Other (incision healing well. steri stips in place. no erythema, no bleeding. ) Skin: positive: Color nml - LABS Result Diagrams: 08/03/23 06:18 08/01/23 13:30 - FOLLOW UP Follow Up: 1 week - TIME SPENT Time Spent in Discharge (Minutes): 20"
== END 2023-08-04 17:00 | disposition home or self-care (01) | DRG 788 ==
LOC: WFO 10:53 → FBP 10:55 → WFO 11:26 → FBP 11:27 → OBSVTOIN 08-02 21:20 → FBP 08-03 08:28
PROVIDERS: ADMIT Obstetrics & Gynecology; ATTEND Obstetrics & Gynecology
PROC: 3E0DXGC Introduction of Other Therapeutic Substance into Mouth and Pharynx, External Approach (ICD-10-PCS; 2023-08-01)
PROC: 10D00Z1 Extraction of Products of Conception, Low, Open Approach (ICD-10-PCS; principal; 2023-08-02 21:30)
DX: O10.92 Unspecified pre-existing hypertension complicating childbirth (principal); O99.214 Obesity complicating childbirth; E66.01 Morbid (severe) obesity due to excess calories; Z37.0 Single live birth; O99.52 Diseases of the respiratory system complicating childbirth; J45.909 Unspecified asthma, uncomplicated; O99.344 Other mental disorders complicating childbirth; F32.A Depression, unspecified; Z3A.39 39 weeks gestation of pregnancy; O61.0 Failed medical induction of labor; O76 Abnormality in fetal heart rate and rhythm complicating labor and delivery; Z23 Encounter for immunization
CPT/HCPCS: 36415; 80053; 85025; 86850; 86900; 86901; 90716; A9270; J0131; J2795; J7120